=== PATIENT | female | born 1985 | race Caucasian/White ===

== ENCOUNTER 2018-05-24 12:48 | Emergency (ER) | payer MEDICAID, SELFPAY ==
[2018-05-24 12:51] VITALS: BP 147/75; PULSE 86; RESP 18; TEMP 36.8; O2SAT 99; BMI 28.8
--- NOTE | 2018-05-24 13:11 | RAD_ITS ---
STUDY: X-RAY CHEST REASON FOR EXAM: Female, 32 years old. CHEST PAIN, COUGH TECHNIQUE: Single AP portable view of the chest. COMPARISON: None. FINDINGS: The lungs are clear and expanded. There is no demonstrated pleural abnormality. Normal size heart. Normal mediastinum and wesley. Normal visualized pulmonary arteries. Normal visualized aortic arch and descending thoracic aorta. Normal visualized thoracic spine. Normal visualized ribs, clavicles, and shoulders. There is no demonstrated abnormality of the visualized soft tissue structures of the upper abdomen. RAD/Chest 1 View (Portable) IMPRESSION: Normal x-ray examination of the chest. Electronically Signed: Nely Lin MD at 13:38 EDT Tel , Service support ,
--- NOTE | 2018-05-24 13:12 | EKG12_ITS ---
Test Reason : REPEAT-CP Blood Pressure : / mmHG Vent. Rate : 077 BPM Atrial Rate : 077 BPM P-R Int : 134 ms QRS Dur : 086 ms QT Int : 392 ms P-R-T Axes : 028 -10 011 degrees QTc Int : 443 ms Normal sinus rhythm Inferior infarct , age undetermined Abnormal ECG Confirmed by KARMA BOOTHE, OTTONIEL ([id number]), magazine editor PETRA TOLBERT ([id number]) on 05/27/2018 2:46:01 PM Referred By: Gladys Quinn Confirmed By:OTTONIEL PARADA MD
[2018-05-24 13:23] LABS: Absolute Lymphocyte Count 3.07 X10^3/ul (0.83-4.51); Absolute Neutrophil Count 5.8 X10^3/uL (2.0-7.7); Basophil# 0.03 X10^3/uL; Basophil% 0.3 % (0-1); Eosinophil# 0.21 X10^3/uL; Eosinophils% 2.2 % (0-5); Hematocrit 43.7 % (37-47); Hemoglobin 14.8 g/dl (12.0-15.0); Lymphocyte # 3.07 X10^3/ul (4.0); Lymphocyte % 31.8 % (19-41); Mean Corp Hgb Conc 33.9 g/gl (32-36); Mean Corpuscular Hgb 29.4 pg (27.0-32.0); Mean Corpuscular Volume 86.7 fL (81-99); Mean Platelet Vol. 10.4 fl (6.2-12.0); Monocyte# 0.53 X10^3/uL; Monocyte% 5.5 % (0-10); Neutrophil # 5.81 X10^3/uL (2.7-7.7); Neutrophil % 60.1 % (47-70); Platelet Count 243 K/mm3 (150-450); RBC Distribution Width CV 12.8 % (11.6-14.6); RBC Distribution Width SD 40.5 fl (35.1-43.9); Red Blood Count 5.04 M/mm3 (4.2-5.4); White Blood Count 9.7 K/mm3 (4.4-11.0)
[2018-05-24 13:24] LABS: POSITIVE COUNT NO; POSITIVE DIFFERENTIAL NO; POSITIVE MORPHOLOGY NO
[2018-05-24] MEDS: 0.9% Normal Saline 1,000 ML 1000 ML IV (13:31)
[2018-05-24] MEDS: Aspirin 81 MG TAB.CHEW 324 MG PO (13:31)
[2018-05-24 13:34] LABS: Anion Gap 7 (5-15); BUN 17 mg/dL (7-18); BUN/Creat Ratio 19.7 RATIO (10-20); Calcium,Total 9.2 mg/dL (8.5-10.1); Chloride 100 mmol/L (98-107); Creatinine, Serum 0.86 mg/dL (0.55-1.02); EST Glomerular Filtration Rate 80 mL/min (>60); Est Glom Filt Rate - Afr Amer 97 mL/min (>60); Glucose 144 mg/dL (74-106); Potassium 3.5 mmol/L (3.5-5.1); Sodium Level 137 mmol/L (136-145)
[2018-05-24 13:56] LABS: D-Dimer Quantitative (DVT/PE) < 0.27 FEU/ug/m (0.27-0.49)
--- NOTE | 2018-05-24 14:03 | ED.VISSUMM ---
- ER Visit Summary Date of Service: 05/24/18 Chief Complaint: Chest pain History of Present Illness: The patient is a 32 F presents to the emergency department chest pain. Patient's been having symptoms for the past 2 days. States over the past 24 hours, has been constant. She describes it as a pressure and tightness in her chest. She states it does go to her left arm. She denies being shortness of breath. She denies any nausea or vomiting. It is not made worse with exertion. The patient does have a recent diagnosis of hypertension. She denies any history of coronary vascular disease. She denies any fevers or chills. She states she has never had symptoms like this before. The pain is not tearing. She has not had a cough. She has not had recent travel or history of pulmonary embolus. Physical Examination: Vital signs reviewed General: Well-nourished, well-developed Head: Normocephalic, atraumatic Eyes: Pupils equal and reactive, extraocular muscles intact Neck, supple, no lymphadenopathy Heart: Regular rate and rhythm Respiratory: No distress, clear bilaterally Abdomen: Soft, nontender, nondistended, no peritoneal signs Back: Nontender Extremities: Nontender, no edema, no cords Skin: Normal color no rash Neuro: Alert and oriented, no focal or lateralizing deficits Test Results: [] Emergency Department Course and Treatment: The patient presents with chest pain to her left arm. It is not exertional. She was given aspirin. She said no recurrence of pain. Her initial EKG showed some T wave flattening diffusely, but does not show acute ischemia. The patient has a heart score of 2. Her initial cardiac enzymes are normal. After discussion with the patient, we are going to do a repeat set of enzymes. My suspicion for cardiac cause is low given the patient's age and symptoms. Her d-dimer was negative. I did repeat her EKG and there is no progression. Her chest x-ray was also unremarkable. Patient will undergo repeat troponin testing. As long as this is normal, I do for the patient can safely be discharged. She is comfortable with this plan of care. Treatment Plan: [] Disposition: Discharge Impression: 1. Chest pain This note was generated with [employer] software. It may contain incorrect words, spelling, and punctuation that were not noted in review of the chart prior to signing ED Disposition - Plan for ED Patient: Chief Complaint: Chest Pain Instructions: ED Chest Pain Atypical Unkn Cause Referrals: Gladys Quinn NP-C [Primary Care Provider] -
--- NOTE | 2018-05-24 14:16 | EKG12_ITS ---
Test Reason : CP Blood Pressure : / mmHG Vent. Rate : 091 BPM Atrial Rate : 091 BPM P-R Int : 126 ms QRS Dur : 084 ms QT Int : 368 ms P-R-T Axes : 035 -01 039 degrees QTc Int : 452 ms Normal sinus rhythm Nonspecific T wave abnormality Abnormal ECG Confirmed by KARMA BOOTHE, OTTONIEL ([id number]), pictures editor PETRA TOLBERT ([id number]) on 05/27/2018 2:45:37 PM Referred By: Gladys Quinn Confirmed By:OTTONIEL PARADA MD
[2018-05-24 15:12] VITALS: BP 118/83; PULSE 85; RESP 14; O2SAT 98
[2018-05-24 15:50] VITALS: BP 125/78; PULSE 80; RESP 14; O2SAT 98
== END 2018-05-24 15:51 | disposition home or self-care (01) ==
PROVIDERS: Emergency Provider Emergency Medicine; PCP Nurse Practitioner Family; Referring Provider Nurse Practitioner Family
DX: R07.9 Chest pain, unspecified (principal); I10 Essential (primary) hypertension; Z79.899 Other long term (current) drug therapy; Z87.891 Personal history of nicotine dependence
CPT/HCPCS: 71045; 80048; 84484; 85025; 85379; 93005; 99285; J7030

== ENCOUNTER 2018-08-24 09:56 | Emergency (ER) | payer MEDICAID, SELFPAY ==
[2018-08-24 09:57] VITALS: BP 141/88; PULSE 100; RESP 18; TEMP 36.6; O2SAT 99; BMI 33.5
[2018-08-24 10:09] VITALS: TEMP 36.7
--- NOTE | 2018-08-24 10:15 | RAD_ITS ---
STUDY: X-RAY CHEST REASON FOR EXAM: Female, 32 years old. Cough. TECHNIQUE: PA and lateral views of the chest. COMPARISON: 24 May 2018. FINDINGS: Mild airspace disease overlies the left upper lobe posterior basilar segment. There is no demonstrated pleural abnormality. Normal size heart. Normal mediastinum and wesley. Normal visualized pulmonary arteries. Normal visualized aortic arch and descending thoracic aorta. Normal visualized thoracic spine. Normal visualized ribs, clavicles, and shoulders. There is no demonstrated abnormality of the visualized soft tissue structures of the upper abdomen. RAD/Chest PA and Lateral IMPRESSION: Early airspace disease overlies the left upper lobe posterior basilar segment concerning for early infiltrate in the appropriate clinical setting. Electronically Signed: Ulices Trujillo DO at 10:35 EST , Service support ,
--- NOTE | 2018-08-24 11:11 | ED.VISSUMM ---
- ER Visit Summary Date of Service: 08/24/18 Chief Complaint: [Cough ] History of Present Illness: The patient is a 32 F [presents to the emergency department with a cough times 2 days. Patient states initially she had some thick yellow sputum however now her cough is mostly dry. Patient's had fever up to 101 at home. She denies any sick contacts. Patient states that she recently got back from a [place] cruise over the holidays. She denies any chest pain other than with cough. She denies any hemoptysis. She denies any leg swelling. She states she woke up today and had bilateral ear pain and a slight sore throat. Patient complains of body aches.] Physical Examination: [HEENT-PERRLA, EOMI. Cranial nerves II through XII grossly intact. TMs clear. Mucous membranes moist. No adenopathy. Cardiovascular-regular rate and rhythm without murmur or ectopy Lungs-clear to auscultation, chest wall stable without crepitus or subcu emphysema Abdomen-normoactive bowel sounds, soft, nontender, no rebound or rigidity, no peritoneal signs. Extremities-intact ?4, normal range of motion, normal pulses, atraumatic] Test Results: [RSV screen was negative, influenza screen negative, chest x-ray was read by radiology as increased markings in the left upper lobe consistent with possibly early infiltrate.] Emergency Department Course and Treatment: [Patient was started on Zithromax] Treatment Plan: [Patient will be treated with Zithromax and Tessalon Perles] Disposition: [Discharged home in stable condition] Impression: [Pneumonia left upper lobe] This note was generated with [employer] dictation software. It may contain incorrect words, spelling, and punctuation that were not noted in review of the chart prior to signing ED Disposition - Plan for ED Patient: Chief Complaint: Cough Referrals: Gladys Quinn NP-C [Primary Care Provider] -
--- NOTE | 2018-08-24 11:14 | DCINST.ED_ITS ---
ED Disposition - Plan for ED Patient: Chief Complaint: Cough Instructions: ED Pneumonia Adult Prescriptions: Azithromycin [Zithromax] 250 mg PO DAILY #4 tab Benzonatate [Tessalon Perle] 200 mg PO TID PRN PRN #20 cap PRN Reason: Cough Referrals: Gladys Quinn, PRESCHOOL PROGRAM DIRECTOR-C [Primary Care Provider] - 5-7 Days
[2018-08-24] MEDS: Azithromycin 250 MG Tablet 500 MG PO (11:36)
[2018-08-24 11:41] VITALS: BP 117/79; PULSE 105; RESP 16; O2SAT 93
== END 2018-08-24 11:42 | disposition home or self-care (01) ==
LOC: ED 10:33
PROVIDERS: Emergency Provider Emergency Medicine; Family Provider Nurse Practitioner Family; PCP Nurse Practitioner Family
DX: J18.9 Pneumonia, unspecified organism (principal)
CPT/HCPCS: 71046; 87804; 87807; 99283

== ENCOUNTER → 2019-03-28 13:58 | Outpatient (CLI) | payer MEDICAID, SELFPAY ==
[2019-04-01 15:47] LABS: HPV Reflexed? NOT INDICATED
== END ==
PROVIDERS: Family Provider Nurse Practitioner Family; PCP Nurse Practitioner Family; Referring Provider Obstetrics & Gynecology; Visit Provider Obstetrics & Gynecology
DX: Z12.4 Encounter for screening for malignant neoplasm of cervix (principal)
CPT/HCPCS: 88175; G0145

== ENCOUNTER → 2019-05-01 12:37 | Outpatient (CLI) | payer MEDICAID, SELFPAY ==
[2019-05-01 14:10] LABS: Progesterone Level 0.26 ng/mL (See Comment)
== END ==
PROVIDERS: Family Provider Nurse Practitioner Family; PCP Nurse Practitioner Family; Referring Provider Obstetrics & Gynecology; Visit Provider Obstetrics & Gynecology
DX: N97.0 Female infertility associated with anovulation (principal)
CPT/HCPCS: 36415; 84144

== ENCOUNTER → 2019-05-29 11:47 | Outpatient (CLI) | payer MEDICAID, SELFPAY ==
[2019-05-29 12:54] LABS: Progesterone Level 6.05 ng/mL (See Comment)
== END ==
PROVIDERS: Family Provider Nurse Practitioner Family; PCP Nurse Practitioner Family; Visit Provider Obstetrics & Gynecology
DX: N97.0 Female infertility associated with anovulation (principal)
CPT/HCPCS: 36415; 84144

== ENCOUNTER → 2019-06-25 12:08 | Outpatient (CLI) | payer MEDICAID, SELFPAY | PROVIDERS: Family Provider Nurse Practitioner Family; PCP Nurse Practitioner Family; Referring Provider Obstetrics & Gynecology; Visit Provider Obstetrics & Gynecology | DX: N97.0 Female infertility associated with anovulation (principal) | CPT/HCPCS: 36415; 84144 ==

== ENCOUNTER → 2019-07-24 11:08 | Outpatient (CLI) | payer MEDICAID, SELFPAY ==
[2019-07-24 14:14] LABS: Progesterone Level 8.16 ng/mL (See Comment)
== END ==
PROVIDERS: Family Provider Nurse Practitioner Family; PCP Nurse Practitioner Family; Visit Provider Obstetrics & Gynecology
DX: N97.0 Female infertility associated with anovulation (principal)
CPT/HCPCS: 36415; 84144

== ENCOUNTER → 2019-08-04 12:48 | Outpatient (CLI) | payer MEDICAID, SELFPAY ==
--- NOTE | 2019-08-04 12:52 | RAD_ITS ---
STUDY: X-RAY - RIGHT FEMUR REASON FOR STUDY: Female, 33 years old. Right hip area pain. TECHNIQUE: 2 view(s) of the femur. COMPARISON: None. FINDINGS: There is a subtle intramedullary and slightly eccentric sclerotic lesion measuring approximately 1.1 x 1.2 cm located within the proximal femoral diaphysis incompletely characterized by current study. Otherwise normal visualized femur. Normal visualized soft tissue structure. RAD/Femur Min 2 Views IMPRESSION: Sclerotic lesion within the proximal femoral diaphysis with no cortical breakthrough and incompletely characterized by current exam. If indicated, follow-up with CT of the proximal femur or MRI in nonacute setting recommended. Electronically Signed: Evi Shook MD at 0:28 EST , Service support ,
== END ==
PROVIDERS: Family Provider Nurse Practitioner Family; PCP Nurse Practitioner Family
DX: M25.551 Pain in right hip (principal)
CPT/HCPCS: 73552

== ENCOUNTER → 2019-08-09 07:09 | Outpatient (CLI) | payer MEDICAID, SELFPAY ==
--- NOTE | 2019-08-09 07:45 | MRI_ITS ---
STUDY: MRI LOWER EXTREMITY RIGHT THIGH WITHOUT CONTRAST REASON FOR EXAM: Female, 33 years old. RIGHT femur abnormality, RIGHT hip pain, NKI. Abnormal x-ray. TECHNIQUE: Standardized fat and water weighted pulse sequences were obtained in all 3 orthogonal planes. COMPARISON: X-ray August 04, 2019. FINDINGS: Normal subcutis adipose space. Normal quadriceps, adductor and hamstring muscles. Normal quadriceps extensor mechanism with a normal rectus femoris, vastus medialis, intermedius and lateralis muscles. There is a 1.2 x 1.0 cm diminished signal region consistent with sclerosis of the marrow of the proximal shaft of the femur, corresponding to the x-ray abnormality, series 3 and 4 image . There is no acute fracture. There is no marrow edema or periosteal reaction. Normal uterus. There are adnexal follicles . MRI/Lower Ext/No Jt/w/o IMPRESSION: Benign appearing diminished signal lesion of the proximal shaft of the femur with possible bone island. More aggressive-appearing lesions would be unlikely with this appearance. No fracture or periosteal reaction. Electronically Signed: Oscar Wilson MD at 9:28 EST , Service support ,
== END ==
DX: D49.2 Neoplasm of unspecified behavior of bone, soft tissue, and skin (principal); M25.551 Pain in right hip
CPT/HCPCS: 73718

== ENCOUNTER → 2019-08-19 10:38 | Outpatient (CLI) | payer MEDICAID, SELFPAY ==
[2019-08-19 12:43] LABS: Progesterone Level 12.23 ng/mL (See Comment)
== END ==
PROVIDERS: Visit Provider Obstetrics & Gynecology
DX: N97.0 Female infertility associated with anovulation (principal)
CPT/HCPCS: 36415; 84144

== ENCOUNTER → 2019-09-17 11:25 | Outpatient (CLI) | payer MEDICAID, SELFPAY ==
[2019-09-17 12:44] LABS: Progesterone Level 8.07 ng/mL (See Comment)
== END ==
PROVIDERS: Visit Provider Obstetrics & Gynecology
DX: N97.0 Female infertility associated with anovulation (principal)
CPT/HCPCS: 36415; 84144

== ENCOUNTER → 2019-11-28 10:10 | Outpatient (CLI) | payer MEDICAID, SELFPAY ==
[2019-09-19 08:48] VITALS: BMI 33.5
--- NOTE | 2019-11-28 10:11 | RAD_ITS ---
STUDY: X-RAY - RIGHT KNEE REASON FOR EXAM: Female, 34 years old. PAIN TECHNIQUE: 4 view(s) of the knee. COMPARISON: None. FINDINGS: Normal visualized distal femur. Normal visualized proximal tibia and fibula. Normal proximal tibiofibular articulation. Normal medial femorotibial compartment. Normal lateral femorotibial compartment. Normal patellofemoral articulation. The soft tissue structures are unremarkable. RAD/Knee 4 or More Views IMPRESSION: Normal x-ray examination of the knee. Electronically Signed: Randy Mckinney, at 8:42 EDT , Service support ,
--- NOTE | 2019-11-28 10:11 | RAD_ITS ---
STUDY: X-RAY - RIGHT FEMUR REASON FOR STUDY: Female, 34 years old. PAIN TECHNIQUE: 4 view(s) of the femur. COMPARISON: Comparison is made with prior study dated August 04, 2019. FINDINGS: There is a 1 cm x 1.2 cm sclerotic nodule in the proximal diaphysis of the right femur. This may represent a bone island. This is unchanged as compared to prior study dated August 04, 2019. Normal visualized soft tissue structure. RAD/Femur Min 2 Views IMPRESSION: 1 cm x 1.2 cm sclerotic nodule in the proximal diaphysis of the right femur as described. This is unchanged. Prior MRI examination of the femur dated August 09, 2019 was unremarkable. Electronically Signed: Randy Mckinney, at 8:42 EDT , Service support ,
== END ==
PROVIDERS: Referring Provider Orthopaedic Surgery; Visit Provider Orthopaedic Surgery
DX: M79.651 Pain in right thigh (principal)
CPT/HCPCS: 73552; 73564

== ENCOUNTER → 2020-05-27 09:53 | Outpatient (CLI) | payer MEDICAID, SELFPAY ==
[2019-11-28 10:30] VITALS: BMI 33.5
[2020-05-27 11:22] LABS: Absolute Lymphocyte Count 2.76 X10^3/uL (0.83-4.51); Absolute Neutrophil Count 4.2 X10^3/uL (2.0-7.7); Basophil# 0.03 X10^3/uL; Basophil% 0.4 % (0-1); Eosinophil# 0.21 X10^3/uL; Eosinophils% 2.7 % (0-5); Hematocrit 46.3 % (37-47); Hemoglobin 15.1 g/dL (12.0-15.0); Lymphocyte # 2.76 X10^3/ul (4.0); Lymphocyte % 35.9 % (19-41); Mean Corp Hgb Conc 32.6 g/dL (32-36); Mean Corpuscular Hgb 28.7 pg (27.0-32.0); Mean Platelet Vol. 10.3 fl (6.2-12.0); Monocyte# 0.41 X10^3/uL; Monocyte% 5.3 % (0-10); NRBC Flagged by Analyzer 0 % (0-5); Neutrophil # 4.24 X10^3/uL (2.7-7.7); Neutrophil % 55.3 % (47-70); Platelet Count 307 K/mm3 (150-450); RBC Distribution Width CV 12.1 % (11.6-14.6); RBC Distribution Width SD 39.3 fl (35.1-43.9); Red Blood Count 5.26 M/mm3 (4.2-5.4); White Blood Count 7.7 K/mm3 (4.4-11.0)
[2020-05-27 12:06] LABS: Vitamin D,25 Hydroxy 59.3 ng/mL
[2020-05-27 12:10] LABS: AST(SGOT) 18 U/L (15-37); Alanine Aminotransfer ALT/SGPT 44 U/L (13-56); Albumin, Serum 4.5 g/dL (3.2-5.0); Alkaline Phosphatase 49 U/L (45-117); Anion Gap 6 (5-15); BUN 13 mg/dL (7-18); BUN/Creat Ratio 16.1 RATIO (10-20); Calcium,Total 9.2 mg/dL (8.5-10.1); Chloride 104 mmol/L (98-107); Cholesterol 154 mg/dL (200); EST Glomerular Filtration Rate 86 mL/min (>60); Est Glom Filt Rate - Afr Amer 104 mL/min (>60); Follicle Stimulating Hormone 4.7 mIU/mL; Globulin 4.4 g/dL (2.2-4.2); Glucose 91 mg/dL (74-106); High Density Lipoprotein 40 mg/dL; Luteinizing Hormone 8.8 mIU/mL; Potassium 4.1 mmol/L (3.5-5.1); Prolactin 6.4 ng/mL; Protein, Total 8.9 g/dL (6.4-8.2); Sodium Level 138 mmol/L (136-145); Thyroid Stim Hormone (TSH) 1.07 uIU/mL (0.358-3.74); Triglycerides 245 mg/dL; Very Low Density Lipoprotein 49 mg/dL (5-40)
[2020-05-27 12:11] LABS: Hemoglobin A1c 5.4 % (3.8-5.6)
== END ==
PROVIDERS: Nurse Practitioner Family
DX: I10 Essential (primary) hypertension (principal); E78.2 Mixed hyperlipidemia; E28.2 Polycystic ovarian syndrome; E55.9 Vitamin D deficiency, unspecified; R68.82 Decreased libido
CPT/HCPCS: 36415; 80053; 80061; 82306; 83001; 83002; 83036; 84146; 84403; 84443; 84481; 85025

== ENCOUNTER → 2020-08-24 09:33 | Outpatient (CLI) | payer MEDICAID, SELFPAY ==
[2019-11-28 10:30] VITALS: BMI 33.5
[2020-08-26 14:57] LABS: HPV Reflexed? NOT INDICATED
== END ==
PROVIDERS: Visit Provider Student in an Organized Health Care Education/Training Program
DX: Z12.4 Encounter for screening for malignant neoplasm of cervix (principal)
CPT/HCPCS: 88175; G0145

== ENCOUNTER → 2020-12-06 09:16 | Outpatient (CLI) | payer OTHER, MEDICAID, SELFPAY ==
[2019-11-28 10:30] VITALS: BMI 33.5
[2020-12-06 10:21] LABS: Vitamin D,25 Hydroxy 36.4 ng/mL
[2020-12-06 10:24] LABS: Hemoglobin A1c 5.2 % (3.8-5.6)
[2020-12-06 10:28] LABS: ALB/GLOB Ratio 1.2 RATIO (0.9-2.4); AST(SGOT) 12 U/L (15-37); Alanine Aminotransfer ALT/SGPT 30 U/L (13-56); Albumin, Serum 4.2 g/dL (3.2-5.0); Alkaline Phosphatase 46 U/L (45-117); Anion Gap 4 (5-15); BUN 13 mg/dL (7-18); BUN/Creat Ratio 17.4 RATIO (10-20); Chloride 103 mmol/L (98-107); Cholesterol 121 mg/dL (200); Creatinine, Serum 0.74 mg/dL (0.55-1.02); EST Glomerular Filtration Rate 94 mL/min (>60); Est Glom Filt Rate - Afr Amer 113 mL/min (>60); Globulin 3.4 g/dL (2.2-4.2); Glucose 102 mg/dL (74-106); High Density Lipoprotein 36 mg/dL; Potassium 3.9 mmol/L (3.5-5.1); Protein, Total 7.6 g/dL (6.4-8.2); Sodium Level 136 mmol/L (136-145); Triglycerides 203 mg/dL; Very Low Density Lipoprotein 41 mg/dL (5-40)
== END ==
DX: I10 Essential (primary) hypertension (principal); E78.2 Mixed hyperlipidemia; E55.9 Vitamin D deficiency, unspecified; E28.2 Polycystic ovarian syndrome
CPT/HCPCS: 36415; 80053; 80061; 82306; 83036

== ENCOUNTER → 2021-02-16 10:16 | Outpatient (CLI) | payer OTHER, MEDICAID, SELFPAY ==
[2019-11-28 10:30] VITALS: BMI 33.5
--- NOTE | 2021-02-16 10:30 | RAD_ITS ---
STUDY: X-RAY - LEFT FOOT CLINICAL: Female, 35 years old. Pain TECHNIQUE: 2 view(s) of the foot. COMPARISON: None. FINDINGS: There is no evidence of fracture or dislocation. There are no significant degenerative changes. There are no radiodense foreign bodies. RAD/Foot 2 Views IMPRESSION: No fracture or dislocation. Electronically Signed: Tre Harmon MD at 8:53 EDT Tel , Service support ,
== END ==
PROVIDERS: PCP Nurse Practitioner Adult Health; Referring Provider Nurse Practitioner Adult Health; Visit Provider Nurse Practitioner Adult Health
DX: M79.672 Pain in left foot (principal)
CPT/HCPCS: 73620

== ENCOUNTER → 2021-07-08 15:03 | Outpatient (CLI) | payer OTHER, MEDICAID, SELFPAY ==
[2021-07-08 16:37] LABS: Vitamin D,25 Hydroxy 25.1 ng/mL
[2021-07-08 16:44] LABS: ALB/GLOB Ratio 1.2 RATIO (0.9-2.4); AST(SGOT) 13 U/L (15-37); Alanine Aminotransfer ALT/SGPT 25 U/L (13-56); Albumin, Serum 4.1 g/dL (3.2-5.0); Alkaline Phosphatase 38 U/L (45-117); Anion Gap 6 (5-15); BUN 18 mg/dL (7-18); BUN/Creat Ratio 19.8 RATIO (10-20); Calcium,Total 8.8 mg/dL (8.5-10.1); Chloride 106 mmol/L (98-107); Creatinine, Serum 0.91 mg/dL (0.55-1.02); EST Glomerular Filtration Rate 74 mL/min (>60); Est Glom Filt Rate - Afr Amer 90 mL/min (>60); Globulin 3.4 g/dL (2.2-4.2); Glucose 83 mg/dL (74-106); Potassium 3.5 mmol/L (3.5-5.1); Protein, Total 7.5 g/dL (6.4-8.2); Sodium Level 139 mmol/L (136-145); Thyroid Stim Hormone (TSH) 0.86 uIU/mL (0.358-3.74)
== END ==
PROVIDERS: PCP Nurse Practitioner Adult Health; Visit Provider Nurse Practitioner Adult Health
DX: I10 Essential (primary) hypertension (principal); E78.2 Mixed hyperlipidemia; E55.9 Vitamin D deficiency, unspecified
CPT/HCPCS: 36415; 80053; 82306; 84443

== ENCOUNTER 2021-11-10 14:59 | Outpatient (CLI) | payer OTHER, MEDICAID, SELFPAY ==
--- NOTE | 2021-11-10 15:10 | RAD_ITS ---
STUDY: CHEST SERIES--PA AND LATERAL VIEWS OF 1512 HOURS ON 11/10/2021 REASON FOR EXAM: 36-year-old female with a cough. TECHNIQUE: A 2 view standard chest x-rays series was performed per protocol. COMPARISON: 08/24/2018. FINDINGS: Mild demineralization. No cardiomegaly. No pulmonary infiltrates, atelectasis, effusion, or pulmonary mass. No pneumonia, pneumonitis or bronchitis. No bronchial wall thickening. No evidence of an infiltrate that was suspected in the previous study of 08/24/2018.. RAD/Chest PA and Lateral IMPRESSION: No active cardiopulmonary disease. Electronically Signed: Raúl Howard MD at 23:58 EDT ,
== END 2021-11-10 23:59 | disposition home or self-care (01) ==
LOC: RAD 15:01
PROVIDERS: PCP Nurse Practitioner Adult Health; Referring Provider Nurse Practitioner Adult Health; Visit Provider Nurse Practitioner Adult Health
DX: R05.9 Cough, unspecified (principal)
CPT/HCPCS: 71046

== ENCOUNTER 2021-11-22 12:53 | Outpatient (CLI) | payer OTHER, MEDICAID, SELFPAY ==
--- NOTE | 2021-11-23 09:59 | PFT ---
INTRODUCTION: The patient is a 36-year-old female that presents for pulmonary function studies secondary to a diagnosis of cough. Respiratory therapy reported good patient effort. Bronchodilators were used during testing. INTERPRETATION: Forced expiration spirometry demonstrates no evidence of a large airways obstructive ventilatory defect. There was no significant response to aerosolized bronchodilators. Spirograms are of good quality and plateau normally. The respiratory flow volume loop is normal. Body plethysmography was performed and reveals lung volumes to be within normal limits. Diffusing capacity by single breath CO is likewise within normal limits. IMPRESSION: Grossly normal pulmonary function studies.
== END 2021-11-22 23:59 | disposition home or self-care (01) ==
LOC: PSN 12:53
PROVIDERS: PCP Nurse Practitioner Adult Health; Referring Provider Nurse Practitioner Adult Health; Visit Provider Nurse Practitioner Adult Health
DX: R05.9 Cough, unspecified (principal)
CPT/HCPCS: 94060; 94726; 94729

== ENCOUNTER → 2022-04-21 | Outpatient (CLI) | payer OTHER, MEDICAID, SELFPAY ==
[2022-04-21 12:13] LABS: T4 Free Direct 1.02 ng/dL (0.76-1.46); Thyroid Stim Hormone (TSH) 1.05 uIU/mL (0.358-3.74)
== END | disposition home or self-care (01) ==
LOC: WOBLAB 10:39
PROVIDERS: PCP Nurse Practitioner Adult Health; Visit Provider Student in an Organized Health Care Education/Training Program
DX: N93.9 Abnormal uterine and vaginal bleeding, unspecified (principal)
CPT/HCPCS: 36415; 84439; 84443

== ENCOUNTER → 2022-07-21 | Outpatient (CLI) | payer OTHER, MEDICAID, SELFPAY ==
[2022-07-21 11:48] LABS: Hemoglobin A1c 5.5 % (3.8-5.6)
[2022-07-21 12:04] LABS: ALB/GLOB Ratio 1.2 RATIO (0.9-2.4); AST(SGOT) 11 U/L (15-37); Alanine Aminotransfer ALT/SGPT 26 U/L (13-56); Albumin, Serum 4.2 g/dL (3.2-5.0); Alkaline Phosphatase 41 U/L (45-117); Anion Gap 5 (5-15); BUN 11 mg/dL (7-18); BUN/Creat Ratio 14.5 RATIO (10-20); Chloride 107 mmol/L (98-107); Cholesterol 171 mg/dL (200); Creatinine, Serum 0.76 mg/dL (0.55-1.02); EST Glomerular Filtration Rate 91 mL/min (>60); Est Glom Filt Rate - Afr Amer 110 mL/min (>60); Globulin 3.4 g/dL (2.2-4.2); Glucose 102 mg/dL (74-106); High Density Lipoprotein 51 mg/dL; Potassium 3.4 mmol/L (3.5-5.1); Protein, Total 7.6 g/dL (6.4-8.2); Sodium Level 139 mmol/L (136-145); Triglycerides 163 mg/dL; Very Low Density Lipoprotein 33 mg/dL (5-40)
== END | disposition home or self-care (01) ==
LOC: LAB 11:02
DX: E11.9 Type 2 diabetes mellitus without complications (principal); I10 Essential (primary) hypertension; E78.2 Mixed hyperlipidemia
CPT/HCPCS: 36415; 80053; 80061; 83036

== ENCOUNTER → 2023-05-05 | Outpatient (CLI) | payer SELFPAY ==
[2023-05-05 10:35] LABS: Absolute Neutrophil Count 5.8 X10^3/uL (2.0-7.7); Basophil# 0.04 X10^3/uL; Basophil% 0.5 % (0-1); Eosinophil# 0.15 X10^3/uL; Eosinophils% 1.8 % (0-5); Hematocrit 44.3 % (37-47); Hemoglobin 14.4 g/dL (12.0-15.0); Lymphocyte % 21.7 % (19-41); Mean Corp Hgb Conc 32.5 g/dL (32-36); Mean Corpuscular Hgb 27.8 pg (27.0-32.0); Mean Corpuscular Volume 85.5 fL (81-99); Mean Platelet Vol. 9.6 fl (6.2-12.0); Monocyte# 0.45 X10^3/uL; Monocyte% 5.4 % (0-10); NRBC Flagged by Analyzer 0 % (0-5); Neutrophil # 5.82 X10^3/uL (2.7-7.7); Neutrophil % 70.4 % (47-70); Platelet Count 304 K/mm3 (150-450); RBC Distribution Width CV 12.2 % (11.6-14.6); RBC Distribution Width SD 37.9 fl (35.1-43.9); Red Blood Count 5.18 M/mm3 (4.2-5.4); White Blood Count 8.3 K/mm3 (4.4-11.0)
[2023-05-05 10:52] LABS: ALB/GLOB Ratio 1.2 RATIO (0.9-2.4); AST(SGOT) 13 U/L (15-37); Alanine Aminotransfer ALT/SGPT 30 U/L (13-56); Alkaline Phosphatase 55 U/L (45-117); Anion Gap 2 (5-15); BUN 9 mg/dL (7-18); BUN/Creat Ratio 11.4 RATIO (10-20); Calcium,Total 8.8 mg/dL (8.5-10.1); Chloride 105 mmol/L (98-107); Cholesterol 130 mg/dL (200); Creatinine, Serum 0.79 mg/dL (0.55-1.02); EST Glomerular Filtration Rate 86 mL/min (>60); Est Glom Filt Rate - Afr Amer 104 mL/min (>60); Globulin 3.4 g/dL (2.2-4.2); Glucose 107 mg/dL (74-106); High Density Lipoprotein 41 mg/dL; Potassium 3.7 mmol/L (3.5-5.1); Protein, Total 7.4 g/dL (6.4-8.2); Sodium Level 138 mmol/L (136-145); Triglycerides 167 mg/dL; Very Low Density Lipoprotein 33 mg/dL (5-40)
[2023-05-05 10:59] LABS: Microalbumin,Random Urine 54.5 mg/L (NO RANGE EST.); Microalbumin:Creatinine Ratio 26.3 mg/g CRE (<30 mg/g CRE)
[2023-05-07 08:25] LABS: Vitamin D,25 Hydroxy 74.8 ng/mL
== END | disposition home or self-care (01) ==
PROVIDERS: PCP Internal Medicine; Referring Provider Internal Medicine; Visit Provider Internal Medicine
DX: E11.9 Type 2 diabetes mellitus without complications (principal); E55.9 Vitamin D deficiency, unspecified
CPT/HCPCS: 36415; 80053; 80061; 82043; 82306; 82570; 85025

== ENCOUNTER → 2023-10-12 | Outpatient (CLI) | payer OTHER, SELFPAY ==
[2023-10-17 16:10] LABS: HPV APTIMA, High Risk Negative (Negative)
== END | disposition home or self-care (01) ==
PROVIDERS: PCP Internal Medicine; Visit Provider Advanced Practice Midwife
DX: Z12.4 Encounter for screening for malignant neoplasm of cervix (principal)
CPT/HCPCS: 87624; 88175; G0145

== ENCOUNTER 2023-11-19 06:49 | Emergency (ER) | payer OTHER, SELFPAY ==
[2023-11-19] VITALS (9 sets, daily range): BP systolic 135–154; BP diastolic 91–108; PULSE 85–90; RESP 16–18; TEMP 36.1–36.6; O2SAT 95–99; BMI 27.2
--- NOTE | 2023-11-19 07:08 | EDS_ITS ---
HPI History of Present Illness Chief Complaint: Headache Informant: patient Narrative Narrative: Patient presents secondary to headache and sinus congestion. She reports having intermittent headaches over the past couple weeks, but states it returned over the weekend. Pain is not focal. She does have congestion with mucus when she blows her nose. She does report mild cough. This morning she had some vomiting and diarrhea as well. She thinks she may have had fever intermittently, but is unsure. She did not take anything for pain prior to coming to the emergency room this morning. [facility] Medical History (Updated 11/19/23 @ 08:[address] Ashleigh Rodriguez MD) Arthritis Depression Diabetes mellitus High cholesterol Hormone deficiency Hypertension Seasonal allergies Vitamin deficiency Home Medications ibuprofen 800 mg tablet 800 mg PO TID PRN pain #60 tabs 03/17/22 [Rx Last Taken Unknown] cetirizine 10 mg tablet 10 mg PO DAILY #90 tabs 08/29/23 [Rx Last Taken Unknown] rosuvastatin 5 mg tablet 5 mg PO QHS #90 tabs 08/29/23 [Rx Last Taken Unknown] desvenlafaxine succinate 25 mg tablet,extended release 24 hr See Rx Instructions .Route .COMPLEX #30 tabs 10/23/23 [Rx Last Taken Unknown] benzonatate 200 mg capsule 200 mg PO TID PRN cough #14 caps 11/19/23 [Rx Last Taken Unknown] doxycycline monohydrate 100 mg capsule 100 mg PO BID #20 CAPSULES 11/19/23 [Rx Last Taken Unknown] Allergy/AdvReac Type Severity Reaction Status Date / Time LISINOPRIL AdvReac Intermediate COUGH Uncoded 10/12/23 16:00 Family History Mother Breast cancer 50s Arthritis Paranoid schizophrenia Grandfather Myocardial infarction Hypertension Heart disease Arthritis Grandmother Hypertension Osteopenia Arthritis Father Hypertension DVT (deep venous thrombosis) Arthritis Surgical History History of removal of ovarian cyst Social History household members: spouse current occupational status: employed current occupation: works in [employer] Smoking Status: Never smoker Electronic Cigarette Use: not used alcohol intake: current alcohol intake frequency: holidays/special occasions only substance use type: does not use seatbelt use: always do you feel safe at home: Yes ROS ROS ED Constitutional Constitutional ED: Reports fever(s) and subjective; Denies chills Eyes Eyes: Denies change in vision or discharge from eye(s) ENT ENT ED: Reports ear pain bilateral and other Details: Sinus congestion ; Denies discharge from eye(s), rhinorrhea or sore throat Cardiovascular Cardiovascular: Denies chest pain or palpitations Respiratory/Chest Respiratory/Chest: Reports cough; Denies dyspnea Gastrointestinal Gastrointestinal: Reports diarrhea, nausea and vomiting; Denies abdominal pain Genitourinary Genitourinary ED: Denies dysuria Musculoskeletal Musculoskeletal: Denies back pain or extremity pain Integumentary Denies Abrasions or rash Neurologic Neurologic: Reports headache(s); Denies weakness Psychiatric Psychiatric: Denies anxiety or depression Allergic/Immunologic Allergic/Immunologic ED: Denies lip swelling or urticaria EXAM Physical Exam Const Vital Signs: 11/19/23 06:51 Temperature 97 F L Temperature Source Oral Pulse Rate 85 Respiratory Rate 16 Blood Pressure 151/103 H Blood Pressure Mean 119 Pulse Ox 95 Oxygen Delivery Method Room Air Positive well nourished and well developed General Appearance ED: well developed HEENT Reports TM's clear and moist mucous membranes HEENT Narrative: Mild tenderness over both the frontal and maxillary sinuses. Tympanic Membrane ED: Yes TM's clear Eyes EOMs intact bilaterally Neck no lymphadenopathy Chest Wall inspection of chest normal and palpation of chest normal Resp normal respiratory effort and clear to auscultation bilaterally Cardio regular rate and regular rhythm GI non-tender Palpation: soft Extremity normal to inspection Neuro oriented x3 and no sensory deficits noted Motor Exam: strength 5/5 throughout Psych mental status grossly normal Skin no rashes or lesions noted MDM MDM MDM Narrative Medical decision making narrative: Patient be given Naprosyn along with doxycycline to treat sinusitis. Swab for COVID, influenza, and RSV will be obtained. Treatment and Re-Evaluation :: Swab for COVID, influenza, and RSV is negative. Patient will be given a prescription for doxycycline along with Tessalon Perles to help control cough. Return instructions provided. Discharge Plan Triage Chief Complaint: Headache ED Provider: Ashleigh Rodriguez Dx/Rx/DC Orders Clinical Impression: URI (upper respiratory infection), Sinusitis Instructions: ED Sinusitis (Antibiotic Treatment) Prescriptions: New benzonatate 200 mg capsule 200 mg PO TID PRN (Reason: cough) Qty: 14 0RF doxycycline monohydrate 100 mg capsule 100 mg PO BID Qty: 20 0RF No Action ibuprofen 800 mg tablet 800 mg PO TID PRN (Reason: pain) Qty: 60 0RF Rx Instructions: Do not take in conjunction with other NSAIDs. Tylenol is okay. cetirizine 10 mg tablet 10 mg PO DAILY Qty: 90 1RF rosuvastatin 5 mg tablet 5 mg PO QHS Qty: 90 1RF desvenlafaxine succinate 25 mg tablet extended release 24 hr See Rx Instructions .ROUTE .COMPLEX Qty: 30 0RF Dose Instruction: Take 1 tablet by mouth once daily Rx Instructions: Take 1 tablet by mouth once daily Primary Care Provider: Christine Christopher Referrals: Christine Christopher MD [Primary Care Provider] - 1-2 Weeks Disposition Disposition: Home, Self Care
[2023-11-19] MEDS: Naproxen 500 MG Tablet PO (07:14)
[2023-11-19] MEDS: Doxycycline 100 MG CAPSULE PO (07:15)
== END 2023-11-19 09:05 | disposition home or self-care (01) ==
PROVIDERS: Emergency Provider Emergency Medicine; PCP Internal Medicine; Visit Provider Emergency Medicine
DX: J06.9 Acute upper respiratory infection, unspecified (principal); E11.9 Type 2 diabetes mellitus without complications; J32.9 Chronic sinusitis, unspecified
CPT/HCPCS: 87631; 99283

== ENCOUNTER → 2023-12-20 | Outpatient (CLI) | payer OTHER, SELFPAY ==
[2023-12-20 17:03] LABS: BNP,B-Type NATRIURETIC PEPTIDE 19.2 pg/mL (0-100); Protein, Urine (Random) 9.9 mg/dL (<11.9); Protein:Creat Ratio 89 mg/g CRE (0-200)
[2023-12-20 17:07] LABS: ALB/GLOB Ratio 1.2 RATIO (0.9-2.4); AST(SGOT) 22 U/L (15-37); Alanine Aminotransfer ALT/SGPT 38 U/L (13-56); Alkaline Phosphatase 50 U/L (45-117); Anion Gap 5 (5-15); BUN 9 mg/dL (7-18); BUN/Creat Ratio 12.6 RATIO (10-20); Calcium,Total 8.9 mg/dL (8.5-10.1); Chloride 104 mmol/L (98-107); Creatinine, Serum 0.72 mg/dL (0.55-1.02); EST Glomerular Filtration Rate 96 mL/min (>60); Est Glom Filt Rate - Afr Amer 117 mL/min (>60); Globulin 3.2 g/dL (2.2-4.2); Glucose 119 mg/dL (74-106); Potassium 3.6 mmol/L (3.5-5.1); Protein, Total 7.2 g/dL (6.4-8.2); Sodium Level 138 mmol/L (136-145); Thyroid Stim Hormone (TSH) 1.35 uIU/mL (0.358-3.74)
[2023-12-20 17:17] LABS: D-Dimer Quantitative (DVT/PE) < 0.27 FEU/ug/m (0.27-0.49)
== END | disposition home or self-care (01) ==
LOC: BIMLAB 15:53
PROVIDERS: PCP Internal Medicine; Referring Provider Nurse Practitioner; Visit Provider Nurse Practitioner
DX: R22.43 Localized swelling, mass and lump, lower limb, bilateral (principal)
CPT/HCPCS: 36415; 80053; 82570; 83880; 84156; 84443; 85379

== ENCOUNTER → 2024-07-22 | Outpatient (CLI) | payer OTHER, SELFPAY ==
[2024-07-22 12:15] LABS: Absolute Neutrophil Count 6.4 X10^3/uL (2.0-7.7); Basophil# 0.05 X10^3/uL; Basophil% 0.5 % (0-1); Eosinophil# 0.21 X10^3/uL; Eosinophils% 2.2 % (0-5); Hematocrit 45.7 % (37-47); Hemoglobin 15.1 g/dL (12.0-15.0); Lymphocyte % 24.9 % (19-41); Mean Corpuscular Volume 84.6 fL (81-99); Mean Platelet Vol. 10.2 fl (6.2-12.0); Monocyte# 0.48 X10^3/uL; NRBC Flagged by Analyzer 0 % (0-5); Neutrophil # 6.44 X10^3/uL (2.7-7.7); Platelet Count 299 K/mm3 (150-450); RBC Distribution Width CV 12.5 % (11.6-14.6); White Blood Count 9.6 K/mm3 (4.4-11.0)
[2024-07-22 12:33] LABS: ALB/GLOB Ratio 1.2 RATIO (0.9-2.4); AST(SGOT) 25 U/L (15-37); Alanine Aminotransfer ALT/SGPT 63 U/L (13-56); Albumin, Serum 4.2 g/dL (3.2-5.0); Alkaline Phosphatase 67 U/L (45-117); Anion Gap 6 (5-15); BUN 15 mg/dL (7-18); BUN/Creat Ratio 20.6 RATIO (10-20); Calcium,Total 9.3 mg/dL (8.5-10.1); Chloride 103 mmol/L (98-107); Cholesterol 157 mg/dL (200); Creatinine, Serum 0.73 mg/dL (0.55-1.02); EST Glomerular Filtration Rate 94 mL/min (>60); Est Glom Filt Rate - Afr Amer 114 mL/min (>60); Globulin 3.5 g/dL (2.2-4.2); Glucose 131 mg/dL (74-106); High Density Lipoprotein 35 mg/dL; Protein, Total 7.7 g/dL (6.4-8.2); Sodium Level 137 mmol/L (136-145); Triglycerides 347 mg/dL; Very Low Density Lipoprotein 69 mg/dL (5-40)
== END | disposition home or self-care (01) ==
LOC: BIMLAB 08:01
PROVIDERS: PCP Internal Medicine; Referring Provider Internal Medicine; Visit Provider Internal Medicine
DX: E11.9 Type 2 diabetes mellitus without complications (principal); I10 Essential (primary) hypertension
CPT/HCPCS: 36415; 80053; 80061; 85025

== ENCOUNTER → 2025-04-11 | Outpatient (CLI) | payer OTHER, SELFPAY ==
[2025-04-11 08:59] LABS: Hematocrit 42.6 % (37-47); Hemoglobin 14.7 g/dL (12.0-15.0); Immature Granulocytes Count 0.050 X10^3/uL (0.0-0.0); Mean Corp Hgb Conc 34.5 g/dL (32-36); Mean Corpuscular Volume 83.2 fL (81-99); Mean Platelet Vol. 9.8 fl (6.2-12.0); NRBC Flagged by Analyzer 0 % (0-5); Platelet Count 283 K/mm3 (150-450); RBC Distribution Width CV 12.2 % (11.6-14.6); RBC Distribution Width SD 37.1 fl (35.1-43.9); Red Blood Count 5.12 M/mm3 (4.2-5.4); White Blood Count 9.0 K/mm3 (4.4-11.0)
[2025-04-11 10:04] LABS: Cholesterol 149 mg/dL (<=200); Low Density Lipoprotein Calc. 65 mg/dL; Triglycerides 204 mg/dL; Very Low Density Lipoprotein 41 mg/dL (5-40); cholesterol:hdl ratio screen 3.46
[2025-04-11 10:29] LABS: AST(SGOT) 21 U/L (<=31); Alanine Aminotransfer ALT/SGPT 29 U/L (<=34); Albumin, Serum 4.5 g/dL (3.5-5.0); Alkaline Phosphatase 52 U/L (35-104); Anion Gap 14 (5-15); BUN 11 mg/dL (4-19); BUN/Creat Ratio 16.1 RATIO (10-20); Calcium,Total 9.1 mg/dL (7.6-11.0); Carbon Dioxide 24.6 mmol/L (21.0-32.0); Chloride 99 mmol/L (98-108); Ferritin 32 ng/mL (22-378); Globulin 2.4 g/dL (2.2-4.2); Glucose 123 mg/dL (70-99); Iron 75 ug/dL (50-170); Iron Binding Capacity,Total 349 ug/dL (250-450); Iron Binding Capacity,Unsat 274 ug/dL (228-428); Potassium 4.1 mmol/L (3.3-5.1); Vitamin B12 402 pg/mL (180-914); Vitamin D,25 Hydroxy 22.0 ng/mL (30-100)
--- OUTSIDE RECORDS SUMMARY | 2025-04-14 07:56 | XMS RPT_ITS | CCD ---
Author Organization [facility] Care Team Providers Care Delivery And Installation Subcontractor Name Role Phone Lyons, CHARGE AUDITOR-C Fide Primary Care Provider Lyons, CHARGE AUDITOR-C Fide Referring Provider Celena CESPEDES, PA Tre Xie Attending Provider Bernard CHARGE AUDITOR, CHARGE AUDITOR-C Shaye Referring Provider Bernard CHARGE AUDITOR, CHARGE AUDITOR-C Shaye Other Provider Dr. Jewel Barth Attending Provider [phone] Lyons, CHARGE AUDITOR-C Fide Primary Care Provider Lyons, CHARGE AUDITOR-C Fide Referring Provider Olga CESPEDES, PA Gracie Attending Provider [phone] River Moore Attending Provider Dr. Christine Christopher Primary Care Provider Dr. Christine Christopher Attending Provider [phone] Dr. Christine Christopher Referring Provider [phone] PHIL Robertson Attending Provider [phone] Dr. Christine Christopher Primary Care Provider Dr. Christine Christopher Attending Provider [phone] Dr. Christine Christopher Referring Provider [phone] PHIL Robertson Attending Provider [phone] Silvio CESPEDES PA Don Attending Provider JULIO Figueroa Attending Provider [phone] Brittany Fonseac Attending Unavailable AddihofBrittany Referring Unavailable Ashwin, Christine Primary Care Unavailable Brittany Fonseca Attending Unavailable AddihoBrittany gutierrez Referring Unavailable [place], Christine Primary Care Unavailable Ashwin, Christine Attending Unavailable [place], Christine Referring Unavailable Ashwin, Christine Primary Care Unavailable Don David Attending Unavailable [place], Christine Referring Unavailable Ashwin, Christine Primary Care Unavailable Tre Perera Attending Unavailable Ashwin, Christine Referring Unavailable Ashwin, Christine Primary Care Unavailable Ashwin, Christine Attending Unavailable Ashwin, Christine Referring Unavailable Ashwin, Christine Primary Care Unavailable Allergies Allergy Classification Reported Allergen(s) Allergy Type Date of Onset Reaction(s) Facility (1 source) Lisinopril Drug Allergy 12-20-20[facility] ([facility] source) Lisinopril Drug Allergy 09-17-2024 [facility] Repository Medications Current Medications Medication Drug Class(es) Dates Sig (Normalized) Sig (Original) cetirizine hydrochloride 10 mg oral tablet (6 sources) Histamine-1 Receptor Antagonist Start: 04-19-2023 End: 08-29-2023 take 10 mg by mouth once daily Cetirizine Active 10 MG PO DAILY August 29, 2023 4:42pm 24 hr desvenlafaxine succinate 50 mg extended release oral tablet (7 sources) Serotonin and Norepinephrine Reuptake Inhibitor Start: 11-19-2023 End: 12-20-2023 take 50 mg by mouth once daily Desvenlafaxine Succinate Active 50 MG PO DAILY December 20, 2023 3:30pm Start: 10-23-2023 End: 11-19-2023 take 1 tablet by mouth once daily Desvenlafaxine Succinate Discontinued 0 .ROUTE .COMPLEX October 23, 2023 3:48pm November 19, 2023 9:57am Take 1 tablet by mouth once daily Start: 10-23-2023 take 1 tablet by ru th once daily Desvenlafaxine Succinate Active 0 .ROUTE .COMPLEX October 23, 2023 3:48pm Take 1 tablet by mouth once daily Start: 08-28-2023 End: 10-23-2023 take 1 tablet by mouth once daily, then take 1 tablet by mouth every twenty-four hours Desvenlafaxine Succinate (Pristiq) 25 mg tablet extended release 24 hr Discontinued 25 MG PO DAILY August 28, 2023 1:00am October 23, 2023 3:49pm famotidine 20 mg oral tablet (7 sources) Histamine-2 Receptor Antagonist Start: 11-19-2023 take 20 mg by mouth once daily Famotidine Active 20 MG PO DAILY November 19, 2023 12:00am Start: 04-19-2023 End: 11-19-2023 take 20 mg by mouth twice daily Famotidine Discontinued 20 MG PO TWICE A DAY August 28, 2023 4:42pm November 19, 2023 6:59am ibuprofen 800 mg oral tablet (5 sources) Nonsteroidal Anti-inflammatory Drug Start: 03-17-2022 take 800 mg by mouth three times daily Ibuprofen Active 800 MG PO THREE TIMES A DAY 60 March 17, 2022 12:00am Do not take in conjunction with other NSAIDs. Tylenol is okay. meloxicam 15 mg oral tablet (8 sources) Nonsteroidal Anti-inflammatory Drug Start: 09-19-2019 End: 11-19-2023 take 15 mg by mouth once daily Meloxicam Active 15 MG PO DAILY November 19, 2023 12:00am rosuvastatin calcium 5 mg oral tablet (10 sources) HMG-CoA Reductase Inhibitor Start: 05-24-2018 End: 08-29-2023 take 5 mg by mouth at bedtime Rosuvastatin Active 5 MG PO AT BEDTIME 90 August 29, 2023 4:42pm Completed/Discontinued Medications Medication Drug Class(es) Dates Sig (Normalized) Sig (Original) amoxicillin 500 mg oral capsule (7 sources) Penicillin-class Antibacterial Start: 09-14-2021 End: 09-24-2021 take 1000 mg by mouth twice daily Amoxicillin Discontinued 1000 MG PO TWICE A DAY 40 September 14, 2021 1:00am September 24, 2021 1:04am amoxicillin 875 mg / clavulanate 125 mg oral tablet (7 sources) Penicillin-class Antibacterial Start: 11-30-2023 End: 12-10-2023 take 1 tablet by mouth every twelve hours Amoxicillin-Pot Clavulanate Discontinued 1 TABLET PO Q12H 20 November 30, 2023 12:00am December 10, 2023 12:05am Start: 09-22-2022 End: 10-02-2022 take 1 tablet by mouth every twelve hours Amoxicillin-Pot Clavulanate Discontinued 1 TABLET PO Q12H 08 06September 22, 2022 1:00am October 02, 2022 1:05am Start: 07-31-2022 End: 08-10-2022 take 1 tablet by mouth every twelve hours Amoxicillin-Pot Clavulanate Discontinued 1 TABLET PO Q12H 08 06July 31, 2022 1:00am August 10, 2022 1:04am azithromycin 250 mg oral tablet (7 sources) Macrolide Antimicrobial Start: 08-24-2018 End: 03-17-2022 take 250 mg by mouth once daily Azithromycin Discontinued 250 MG PO DAILY August 24, 2018 1:00am March 17, 2022 8:31am benzonatate 200 mg oral capsule (12 sources) Non-narcotic Antitussive Start: 11-19-2023 End: 12-20-2023 take 200 mg by mouth three times daily Benzonatate Discontinued 200 MG PO THREE TIMES A DAY November 19, 2023 12:00am December 20, 2023 3:25pm Start: 09-25-2022 End: 04-19-2023 take 200 mg by mouth three times daily Benzonatate Discontinued 200 MG PO THREE TIMES A DAY September 25, 2022 1:00am April 19, 2023 2:04pm Start: 08-24-2018 End: 03-17-2022 take 200 mg by mouth three times daily as needed Benzonatate Discontinued 200 MG PO 3 TIMES DAILY NEEDED August 24, 2018 1:00am March 17, 2022 8:31am 24 hr buPROPion hydrochloride 150 mg extended release oral tablet (8 sources) Aminoketone Start: 08-28-2023 End: 11-19-2023 Bupropion Hcl Discontinued 150 MG PO DAILY August 28, 2023 4:51pm November 19, 2023 6:58am take 1 tablet daily for 7 days, then stop Start: 03-17-2022 End: 08-28-2023 take 300 mg by mouth once daily Bupropion Hcl Discontinued 300 MG PO DAILY March 17, 2022 12:00am August 28, 2023 4:52pm cholecalciferol 1.25 mg oral capsule (7 sources) Vitamin D Start: 05-24-2018 End: 08-28-2023 take 1 capsule by mouth every week Cholecalciferol (Vitamin D3) Discontinued 1 CAP PO EVERY WEEK May 24, 2018 12:00am August 28, 2023 4:18pm doxycycline monohydrate 100 mg oral capsule (9 sources) Tetracycline- class Drug Start: 11-19-2023 End: 12-20-2023 take 100 mg by mouth twice daily Doxycycline Monohydrate Discontinued 100 MG PO TWICE A DAY November 19, 2023 12:00am December 20, 2023 3:25pm Start: 09-19-2021 End: 03-17-2022 take 100 mg by mouth twice daily Doxycycline Monohydrate Discontinued 100 MG PO TWICE A DAY September 19, 2021 1:00am March 17, 2022 8:31am hydroCHLOROthiazide 12.5 mg oral tablet (7 sources) Thiazide Diuretic Start: 05-24-2018 End: 04-19-2023 take 12.5 mg by mouth once daily Hydrochlorothiazide Discontinued 12.5 MG PO DAILY May 24, 2018 12:00am April 19, 2023 2:05pm levoFLOXacin 500 mg oral tablet (3 sources) Quinolone Antimicrobial Start: 10-04-2022 End: 04-19-2023 take 500 mg by mouth once daily Levofloxacin Discontinued 500 MG PO DAILY October 04, 2022 1:00am April 19, 2023 2:05pm lisinopril 10 mg oral tablet (7 sources) Angiotensin Converting Enzyme Inhibitor Start: 05-24-2018 End: 03-17-2022 take 10 mg by mouth once daily Lisinopril Discontinued 10 MG PO DAILY May 24, 2018 12:00am March 17, 2022 8:31am 24 hr loratadine 10 mg / pseudoephedrine sulfate 240 mg extended release oral tablet (5 sources) alpha-Adrenergic Agonist Start: 03-17-2022 End: 04-19-2023 take 1 tablet by mouth once daily Loratadine-Pseudoephed rine (Allergy Relief,Nasal Decongest) 10-240 mg tablet extended release 24 hr Discontinued 1 TABLET PO DAILY March 17, 2022 12:00am April 19, 2023 2:05pm losartan potassium 50 mg oral tablet (7 sources) Angiotensin 2 Receptor Sury Start: 04-19-2023 End: 11-19-2023 take 50 mg by mouth once daily Losartan Discontinued 50 MG PO DAILY August 29, 2023 4:42pm November 19, 2023 6:59am metFORMIN hydrochloride 500 mg oral tablet (5 sources) Biguanide Start: 03-17-2022 End: 08-28-2023 take 500 mg by mouth twice daily Metformin Discontinued 500 MG PO TWICE A DAY March 17, 2022 12:00am August 28, 2023 4:18pm methylPREDNISolone 4 mg oral tablet (4 sources) Corticosteroid Start: 11-30-2023 End: 12-06-2023 take 1 tablet by mouth once Methylprednisolone (Medrol (Siva)) 4 mg tablets,dose pack Discontinued 4 MG PO per package directions 07 02November 30, 2023 12:00am December 06, 2023 12:07am Start: 09-25-2022 End: 04-19-2023 take 1 tablet by mouth once Methylprednisolone (Medrol (Siva)) 4 mg tablets,dose pack Discontinued 0 PO per package directions September 25, 2022 1:00am April 19, 2023 2:06pm PO PER PKG DIR spironolactone 25 mg oral tablet (5 sources) Aldosterone Antagonist Start: 03-17-2022 End: 04-19-2023 take 25 mg by mouth once daily Spironolactone Discontinued 25 MG PO DAILY March 17, 2022 12:00am April 19, 2023 2:06pm Problems Active Problems Problem Classification Problem Date Documented Da te Episodic/Chronic Abdominal pain (11 sources) Abdominal pain; Translations: [Unspecified abdominal pain] 04-19-2023 Episodic Anxiety disorders (4 sources) Other specified anxiety disorders; Translations: [Dysthymic disorder] 08-28-2023 Chronic Diabetes mellitus without complication (9 sources) Type 2 diabetes mellitus; Translations: [Type 2 diabetes mellitus without complications] Onset: 08-21-2024 04-19-2023 Chronic Disorders of lipid metabolism (1 source) Mixed hyperlipidemia; Translations: [Mixed hyperlipidemia] Onset: 04-11-2025 Chronic Essential hypertension (8 sources) Essential hypertension; Translations: [Essential (primary) hypertension] Onset: 07-22-2024 04-19-2023 Chronic Malaise and fatigue (1 source) Other fatigue; Translations: [Other fatigue] Onset: 04-11-2025 Episodic Mood disorders (2 sources) Depressive disorder; Translations: [Depression] 12-20-2023 Chronic Nutritional deficiencies (1 source) Vitamin D deficiency, unspecified; Translations: [Vitamin D deficiency, unspecified] Onset: 04-11-2025 Chronic Nutritional deficiencies (3 sources) Vitamin deficiency; Translations: [Vitamin deficiency, unspecified] 04-19-2023 Episodic Osteoarthritis (3 sources) Arthritis; Translations: [Unspecified osteoarthritis, unspecified site] 04-19-2023 Chronic Other bone disease and musculoskeletal deformities (1 source) Other specified disorders of bone, thigh; Translations: [Other disorders of bone and cartilage] Episodic Other connective tissue disease (1 source) Trochanteric bursitis, right hip; Translations: [Enthesopathy of hip region] Episodic Other nervous system disorders (1 source) Lesion of sciatic nerve, right lower limb; Translations: [Lesion of sciatic nerve] Chronic Other non-traumatic joint disorders (4 sources) Pain in right hip; Translations: [Pain in joint, pelvic region and thigh] 08-28-2023 Episodic Other nutritional; endocrine; and metabolic disorders (1 source) Weight gain; Translations: [Abnormal weight gain] 12-20-2023 Episodic Other nutritional; endocrine; and metabolic disorders (1 source) Abnormal weight gain; Translations: [Abnormal weight gain] 12-20-2023 Episodic Other skin disorders (1 source) Bilateral localized swelling of lower legs; Translations: [Localized swelling, mass and lump, lower limb, bilateral] 12-20-2023 Episodic Other skin disorders (1 source) Localized swelling, mass and lump, lower limb, bilateral; Translations: [Swelling of limb] 12-20-2023 Episodic Other upper respiratory disease (3 sources) Seasonal allergy; Translations: [Other seasonal allergic rhinitis] 04-19-2023 Chronic Other upper respiratory infections (2 sources) Sinusitis; Translations: [Chronic sinusitis, unspecified] 11-19-2023 Chronic Otitis media and related conditions (3 sources) Acute bilateral otitis media ; Translations: [Otitis media, unspecified, bilateral] 04-18-2023 Episodic Spondylosis; intervertebral disc disorders; other back problems (1 source) Sacrococcygeal disorders, not elsewhere classified; Translations: [Disorders of sacrum] Episodic Past or Other Problems Problem Classification Problem Date Documented Da te Episodic/Chronic Other upper respiratory infections (14 sources) Acute frontal sinusitis; Translations: [Acute frontal sinusitis, unspecified] Onset: 08-08-2024 Episodic Results Test Name Value Interpretation Reference Range Facility CBC W/Diff, Automatedon 08-2 Absolute Lymph 2.37 X10 3/uL Normal 0.83-4.51 [facility] Comment on above: Performed By: #### L 500.4050, L503.6030, L501.9985, L506.1001, L506.0400, L503.0106, L501.9520, L100.0100, L500.4100, L503.6550 #### [facility] [address] [facility] [place], [place], [id number] ([phone]) Absolute Neut 5.9 X10 3/uL Normal 2.0-7.7 [facility] Comment on above: Performed By: #### L 500.4050, L503.6030, L501.9985, L506.1001, L506.0400, L503.0106, L501.9520, L100.0100, L500.4100, L503.6550 #### [facility] [address] [facility] [place], [place], [id number] (467 Basophils/100 WBC (Bld) 0.6 % Normal 0-1 [facility] Comment on above: Performed By: #### L 500.4050, L503.6030, L501.9985, L506.1001, L506.0400, L503.0106, L501.9520, L100.0100, L500.4100, L503.6550 #### [facility] [address] [place], [place], [phone] ([phone] Eosinophils/100 WBC (Bld) 2.5 % Normal 0-5 [facility] Comment on above: Performed By: #### L 500.4050, L503.6030, L501.9985, L506.1001, L506.0400, L503.0106, L501.9520, L100.0100, L500.4100, L503.6550 #### [facility] [address] [facility] [place], [place], [id number] Erythrocyte distribution width (RBC) [Ratio] 12.2 % Normal 11.6-14.6 [facility] Comment on above: Performed By: #### L 500.4050, L503.6030, L501.9985, L506.1001, L506.0400, L503.0106, L501.9520, L100.0100, L500.4100, L503.6550 #### [facility] [address] [facility], [address] Hematocrit (Bld) [Volume fraction] 42.6 % Normal 37-47 [facility] Comment on above: Performed By: #### L 500.4050, L503.6030, L501.9985, L506.1001, L506.0400, L503.0106, L501.9520, L100.0100, L500.4100, L503.6550 #### [facility] [address] [facility], [address] Hemoglobin (Bld) [Mass/Vol] 14.7 g/dL Normal 12.0-15.0 [facility] Comment on above: Performed By: #### L 500.4050, L503.6030, L501.9985, L506.1001, L506.0400, L503.0106, L501.9520, L100.0100, L500.4100, L503.6550 #### [facility] [address] [facility], [address] IG% 0.600 Normal 0.0-0.9 [facility] Comment on above: Result Comment: IG% - Immature Granulocytes (promyelocytes, myelocytes and metamyelocytes) > 1% indicates that a LEFT SHIFT is Present. Performed By: #### L 500.4050, L503.6030, L501.9985, L506.1001, L506.0400, L503.0106, L501.9520, L100.0100, L500.4100, L503.6550 #### [facility] [address] [place], [address] Lymphocytes/100 WBC (Bld) 26.2 % Normal 19-41 [facility] Comment on above: Performed By: #### L 500.4050, L503.6030, L501.9985, L506.1001, L506.0400, L503.0106, L501.9520, L100.0100, L500.4100, L503.6550 #### [facility] [address] [facility], [address] MCH (RBC) [Entitic mass] 28.7 pg Normal 27.0-32.0 [facility] Comment on above: Performed By: #### L 500.4050, L503.6030, L501.9985, L506.1001, L506.0400, L503.0106, L501.9520, L100.0100, L500.4100, L503.6550 #### [facility] [address] [facility], [address] MCHC (RBC) [Mass/Vol] 34.5 g/dL Normal 32-36 [facility] Comment on above: Performed By: #### L 500.4050, L503.6030, L501.9985, L506.1001, L506.0400, L503.0106, L501.9520, L100.0100, L500.4100, L503.6550 #### [facility] [address] [facility] [address] [address] [place], [address] MCV (RBC) [Entitic vol] 83.2 fL Normal 81-99 [facility] Comment on above: Performed By: #### L 500.4050, L503.6030, L501.9985, L506.1001, L506.0400, L503.0106, L501.9520, L100.0100, L500.4100, L503.6550 #### [facility] [address] [facility], [address] Monocytes/100 WBC (Bld) 5.0 % Normal 0-10 [facility] Comment on above: Performed By: #### L 500.4050, L503.6030, L501.9985, L506.1001, L506.0400, L503.0106, L501.9520, L100.0100, L500.4100, L503.6550 #### [facility] [address] [place], [address] (513 Neutrophils/100 WBC (Bld) 65.1 % Normal 47-70 [facility] Comment on above: Performed By: #### L 500.4050, L503.6030, L501.9985, L506.1001, L506.0400, L503.0106, L501.9520, L100.0100, L500.4100, L503.6550 #### [facility] [address] [place], [place], [id number] (087 Nucleated RBC (Bld) [#/Vol] 0 10*3/uL Normal 0-5 [facility] Comment on above: Performed By: #### L 500.4050, L503.6030, L501.9985, L506.1001, L506.0400, L503.0106, L501.9520, L100.0100, L500.4100, L503.6550 #### [facility] [address] [facility], [address] ( Platelet mean volume (Bld) [Entitic vol] 9.8 fL Normal 6.2-12.0 [facility] Comment on above: Performed By: #### L 500.4050, L503.6030, L501.9985, L506.1001, L506.0400, L503.0106, L501.9520, L100.0100, L500.4100, L503.6550 #### [facility] [address] [place], [address] Platelets (Bld) [#/Vol] 283 10*3/uL Normal 150-450 [facility] Comment on above: Performed By: #### L 500.4050, L503.6030, L501.9985, L506.1001, L506.0400, L503.0106, L501.9520, L100.0100, L500.4100, L503.6550 #### [facility] [address] [facility], [address] RBC (Bld) [#/Vol] 5.12 10*6/uL Normal 4.2-5.4 [facility] Comment on above: Performed By: #### L 500.4050, L503.6030, L501.9985, L506.1001, L506.0400, L503.0106, L501.9520, L100.0100, L500.4100, L503.6550 #### [facility] [address] [facility] [place], [address] RDW SD 37.1 fl Normal 35.1-43.9 [facility] Comment on above: Performed By: #### L 500.4050, L503.6030, L501.9985, L506.1001, L506.0400, L503.0106, L501.9520, L100.0100, L500.4100, L503.6550 #### [facility] [address] [facility] [address] [place], [address] WBC (Bld) [#/Vol] 9.0 10*3/uL Normal 4.4-11.0 [facility] Comment on above: Performed By: #### L 500.4050, L503.6030, L501.9985, L506.1001, L506.0400, L503.0106, L501.9520, L100.0100, L500.4100, L503.6550 #### [facility] [address] [place], [place], [id number] Comprehensive Metabolic Prof moon 04-11-2025 Albumin [Mass/Vol] 4.5 g/dL Normal 3.5-5.0 [facility] Comment on above: Result Comment: AMENDED REPORT 04/11/251028 ALB previously reported as: 4.4 g/dL Performed By: #### L 500.4050, L503.6030, L501.9985, L506.1001, L506.0400, L503.0106, L501.9520, L100.0100, L500.4100, L503.6550 #### [facility] [address] [facility] [address] [place], [address] Albumin/Globulin [Mass ratio] 1.9 {ratio} Normal 0.9-2.4 [facility] Comment on above: Result Comment: AMENDED REPORT 04/11/251028 A/G previously reported as: 1.7 RATIO Performed By: #### L 500.4050, L503.6030, L501.9985, L506.1001, L506.0400, L503.0106, L501.9520, L100.0100, L500.4100, L503.6550 #### [facility] [address] [place], [place], [id number] ALK PHOS 52 U/L Normal 35-104 [facility] Comment on above: Result Comment: AMENDED REPORT 04/11/251028 ALK P previously reported as: 54 U/L Performed By: #### L 500.4050, L503.6030, L501.9985, L506.1001, L506.0400, L503.0106, L501.9520, L100.0100, L500.4100, L503.6550 #### [facility] [address] [place], [address] ALT [Catalytic activity/Vol] 29 U/L Normal <=34 [facility] Comment on above: Performed By: #### L 500.4050, L503.6030, L501.9985, L506.1001, L506.0400, L503.0106, L501.9520, L100.0100, L500.4100, L503.6550 #### [facility] [address] [place], [address] AST [Catalytic activity/Vol] 21 U/L Normal <=31 [facility] Comment on above: Performed By: #### L 500.4050, L503.6030, L501.9985, L506.1001, L506.0400, L503.0106, L501.9520, L100.0100, L500.4100, L503.6550 #### [facility] [address] [place], [address] Bilirubin [Mass/Vol] 0.61 mg/dL Normal 0.00-1.30 [facility] Comment on above: Result Comment: AMENDED REPORT 04/11/251028 T BILI previously reported as: 0.54 mg/dL Performed By: #### L 500.4050, L503.6030, L501.9985, L506.1001, L506.0400, L503.0106, L501.9520, L100.0100, L500.4100, L503.6550 #### [facility] [address] [place], [address] BUN/CRE 16.1 RATIO Normal 10-20 [facility] Comment on above: Result Comment: AMENDED REPORT 04/11/259 BUN/CRE previously reported as: 15.6 RATIO Performed By: #### L 500.4050, L503.6030, L501.9985, L506.1001, L506.0400, L503.0106, L501.9520, L100.0100, L500.4100, L503.6550 #### [facility] [address] [place], [address] Calcium [Mass/Vol] 9.1 mg/dL Normal 7.6-11.0 [facility] Comment on above: Result Comment: AMENDED REPORT 04/11/251028 CA previously reported as: 9.2 mg/dL Performed By: #### L 500.4050, L503.6030, L501.9985, L506.1001, L506.0400, L503.0106, L501.9520, L100.0100, L500.4100, L503.6550 #### [facility] [address] [place], [address] Chloride [Moles/Vol] 99 mmol/L Normal 98-108 [facility] Comment on above: Result Comment: AMENDED REPORT 04/11/25 1029 CL previously reported as: 100 mmol/L Performed By: #### L 500.4050, L503.6030, L501.9985, L506.1001, L506.0400, L503.0106, L501.9520, L100.0100, L500.4100, L503.6550 #### [facility] [address] [place], [address] CO2 [Moles/Vol] 24.6 mmol/L Normal 21.0-32.0 [facility] Comment on above: Result Comment: AMENDED REPORT 04/11/259 CO2 previously reported as: 24.0 mmol/L Performed By: #### L 500.4050, L503.6030, L501.9985, L506.1001, L506.0400, L503.0106, L501.9520, L100.0100, L500.4100, L503.6550 #### [facility] [address] [place], [address] Creatinine [Mass/Vol] 0.71 mg/dL Normal 0.70-1.20 [facility] Comment on above: Performed By: #### L 500.4050, L503.6030, L501.9985, L506.1001, L506.0400, L503.0106, L501.9520, L100.0100, L500.4100, L503.6550 #### [facility] [address] [place], [address] GAP 14 Normal 5-15 [facility] Comment on above: Result Comment: AMENDED REPORT 04/11/251028 GAP previously reported as: 14 Performed By: #### L 500.4050, L503.6030, L501.9985, L506.1001, L506.0400, L503.0106, L501.9520, L100.0100, L500.4100, L503.6550 #### [facility] [facility] [address] [place], [address] Globulin (S) [Mass/Vol] 2.4 g/dL Normal 2.2-4.2 [facility] Comment on above: Result Comment: AMENDED REPORT 04/11/251028 GLOB previously reported as: 2.6 g/dL Performed By: #### L 500.4050, L503.6030, L501.9985, L506.1001, L506.0400, L503.0106, L501.9520, L100.0100, L500.4100, L503.6550 #### [facility] [address] [place], [address] Glucose [Mass/Vol] 123 mg/dL High 70-99 [facility] Comment on above: Performed By: #### L 500.4050, L503.6030, L501.9985, L506.1001, L506.0400, L503.0106, L501.9520, L100.0100, L500.4100, L503.6550 #### [facility] [address] [place], [place], [id number] Potassium [Moles/Vol] 4.1 mmol/L Normal 3.3-5.1 [facility] Comment on above: Performed By: #### L 500.4050, L503.6030, L501.9985, L506.1001, L506.0400, L503.0106, L501.9520, L100.0100, L500.4100, L503.6550 #### [facility] [address] [place], [place], [id number] Sodium [Moles/Vol] 137 mmol/L Normal 133-145 [facility] Comment on above: Result Comment: AMENDED REPORT 04/11/251028 NA previously reported as: 138 mmol/L Performed By: #### L 500.4050, L503.6030, L501.9985, L506.1001, L506.0400, L503.0106, L501.9520, L100.0100, L500.4100, L503.6550 #### [facility] [address] [place], [place], [id number] T PROT 6.9 g/dL Normal 5.9-8.4 [facility] Comment on above: Result Comment: AMENDED REPORT 04/11/251028 T PROT previously reported as: 7.1 g/dL Performed By: #### L 500.4050, L503.6030, L501.9985, L506.1001, L506.0400, L503.0106, L501.9520, L100.0100, L500.4100, L503.6550 #### [facility] [address] [place], [address] Urea nitrogen [Mass/Vol] 11 mg/dL Normal 4-19 [facility] Comment on above: Performed By: #### L 500.4050, L503.6030, L501.9985, L506.1001, L506.0400, L503.0106, L501.9520, L100.0100, L500.4100, L503.6550 #### [facility] [address] [place], [address] Ferritinon 04-11-2025 Ferritin [Mass/Vol] 32 ng/mL Normal 22-378 [facility] Comment on above: Result Comment: AMENDED REPORT 04/11/25 1029 FERRITIN previously reported as: 35 ng/mL Performed By: #### L 500.4050, L503.6030, L501.9985, L506.1001, L506.0400, L503.0106, L501.9520, L100.0100, L500.4100, L503.6550 #### [facility] [address] [place], [address] Hemoglobin A1con 04-11-2025 HbA1c (Bld) [Mass fraction] 6.1 % High <=5.6 [facility] Comment on above: Result Comment: Norm al < 5.7 % Prediabetic 5.7 - 6.4 % Diabetic >or= 6.5 % Please note range changes. Performed By: #### L 500.4050, L503.6030, L501.9985, L506.1001, L506.0400, L503.0106, L501.9520, L100.0100, L500.4100, L503.6550 #### [facility] [address] [place], [address] Iron+Iron Binding Capacityon 04-11-2025 Iron [Mass/Vol] 75 ug/dL Normal 50-170 [facility] Comment on above: Performed By: #### L 500.4050, L503.6030, L501.9985, L506.1001, L506.0400, L503.0106, L501.9520, L100.0100, L500.4100, L503.6550 ####[facility] [address] [place], [place], [id number] IRON SATURATION 21.0 Normal 13-59 [facility] Comment on above: Performed By: #### L 500.4050, L503.6030, L501.9985, L506.1001, L506.0400, L503.0106, L501.9520, L100.0100, L500.4100, L503.6550 ####[facility] [address] [place], [place], [id number] TIBC 349 ug/dL Normal 250-450 [facility] Comment on above: Performed By: #### L 500.4050, L503.6030, L501.9985, L506.1001, L506.0400, L503.0106, L501.9520, L100.0100, L500.4100, L503.6550 ####[facility] [address] [place], [place], [id number] UIBC 274 ug/dL Normal 228-428 [facility] Comment on above: Performed By: #### L 500.4050, L503.6030, L501.9985, L506.1001, L506.0400, L503.0106, L501.9520, L100.0100, L500.4100, L503.6550 ####[facility] [address] [place], [place], [address] Lipid Profileon 04-11-2025 CHOL:HDL 3.46 Normal [facility] Comment on above: Performed By: #### L 500.4050, L503.6030, L501.9985, L506.1001, L506.0400, L503.0106, L501.9520, L100.0100, L500.4100, L503.6550 #### [facility] [address] [place], [address] Cholesterol [Mass/Vol] 149 mg/dL Normal <=200 [facility] Comment on above: Result Comment: Chol esterol level, Desirable <200 mg/dL Borderline high cholesterol 200-239 mg/dL High cholesterol >=240 mg/dL Recommendations of the NCEP Adult Treatment Panel for the following risk-cutoff thresholds for the [place] population. Performed By: #### L 500.4050, L503.6030, L501.9985, L506.1001, L506.0400, L503.0106, L501.9520, L100.0100, L500.4100, L503.6550 #### [facility] [address] [place], [address] Cholesterol in HDL [Mass/Vol] 43 mg/dL Normal [facility] Comment on above: Result Comment: Maria Elena onal Cholesterol Education Program (NCEP) guidelines: <40 mg/dL: Low HDL-cholesterol (major risk factor for CHD) >= 60 mg/dL: High HDL-cholesterol (negative risk factor for CHD) HDL-cholesterol is affected by a number of factors, e.g. smoking, exercise, hormones, sex and age. Performed By: #### L 500.4050, L503.6030, L501.9985, L506.1001, L506.0400, L503.0106, L501.9520, L100.0100, L500.4100, L503.6550 #### [facility] [address] [place], [address] Cholesterol in LDL [Mass/Vol] 65 mg/dL Normal [facility] Comment on above: Result Comment: Bord wolizw=250-653 mg/dL Higher Pksd=288 mg/dL or greater Friedwald Equation for LDL-C Performed By: #### L 500.4050, L503.6030, L501.9985, L506.1001, L506.0400, L503.0106, L501.9520, L100.0100, L500.4100, L503.6550 #### [facility] [address] [place], [place], [id number] Cholesterol in VLDL [Mass/Vol] 41 mg/dL High 5-40 [facility] Comment on above: Performed By: #### L 500.4050, L503.6030, L501.9985, L506.1001, L506.0400, L503.0106, L501.9520, L100.0100, L500.4100, L503.6550 #### [facility] [address] [place], [place], [address] Triglyceride [Mass/Vol] 204 mg/dL High [facility] Comment on above: Result Comment: The drugs N-Acetylcysteine and Metamizole may falsely depress this assay. Normal range: <150 mg/dL Borderline High: 150-199 mg/dL High: 200-499 mg/dL Very High: >500 mg/dL Performed By: #### L 500.4050, L503.6030, L501.9985, L506.1001, L506.0400, L503.0106, L501.9520, L100.0100, L500.4100, L503.6550 #### [facility] [address] [facility] [place], [place], [id number] T4 Free Directon 04-11-2025 T4 FREE DIRECT 0.90 ng/dL Normal 0.76-1.46 [facility] Comment on above: Result Comment: AMENDED REPORT 04/11/25 1029 Free T4 previously reported as: 1.00 ng/dL Performed By: #### L 500.4050, L503.6030, L501.9985, L506.1001, L506.0400, L503.0106, L501.9520, L100.0100, L500.4100, L503.6550 ####[facility] [address] [place], [place], [address] Thyroid Stim Hormone (TSH)on 04-11-2025 TSH 1.170 uIU/mL Normal 0.300-4.200 [facility] Comment on above: Result Comment: AMENDED REPORT 04/11/251028 TSH previously reported as: 1.160 uIU/mL Performed By: #### L 500.4050, L503.6030, L501.9985, L506.1001, L506.0400, L503.0106, L501.9520, L100.0100, L500.4100, L503.6550 #### [facility] [address] [place], [place], [address] Vitamin B12on 04-11-2025 Cobalamin (Vitamin B12) [Mass/Vol] 402 pg/mL Normal 180-914 [facility] Comment on above: Result Comment: AMENDED REPORT 04/11/251028 Vitamin B12 previously reported as: 415 pg/mL Performed By: #### L 500.4050, L503.6030, L501.9985, L506.1001, L506.0400, L503.0106, L501.9520, L100.0100, L500.4100, L503.6550 #### [facility] [address] [place], [place], [address] Vitamin D,25 Hydroxyon 04-11 Vitamin D 25-OH 22.0 ng/mL Low 30-100 [facility] Comment on above: Result Comment: Joanie min D Status Deficiency: <20 ng/mL (50nmol/L) Insufficiency: 20-30 ng/mL (50-75 nmol/L) Sufficiency: 30-100 ng/mL (75-250 nmol/L) Toxicity: >100 ng/mL (>250 nmol/L) AMENDED REPORT 04/11/251028 Vitamin D 25-OH previously reported as: 23.8 L ng/mL Vitamin D Status Deficiency: <20 ng/mL (50nmol/L) Insufficiency: 20-30 ng/mL (50-75 nmol/L) Sufficiency: 30-100 ng/mL (75-250 nmol/L) Toxicity: >100 ng/mL (>250 nmol/L) Performed By: #### L 500.4050, L503.6030, L501.9985, L506.1001, L506.0400, L503.0106, L501.9520, L100.0100, L500.4100, L503.6550 ####[facility] [address] [place], [address] Urgent Care Visit Reporton 0 09-17-2024 Urgent Care Visit Report [facility] [address], [address] [place] [address] OFFICE VISIT Date of Service: 09/17/24 MR#: [id number] Acct: [id number] Name: SOSA VALLEJO Rep #: [id number] : 1985 Provider: RUBINA Barbosa Age/Sex: 38/F Location: [facility] Status: Signed Intake Vital Signs 08/08/24 10:55 09/17/24 09:40 Height 5 ft 6 in Weight: 175 lb 2 oz BMI 28.3 BP 122/60 H 130/60 H Blood Pressure Location Lt brachial Position Sitting Sitting Respiration 15 Pulse 96 100 Pulse Source NIBP Temp 99.1 F 98.5 F Temp Source Oral Oral Pulse Oximetry (%) 98 98 Oxygen Delivery Method room air room air Intake Visit Reasons: ERWIN/COUGH/BA Chief Complaint: ERWIN, BA, cough, congest, fever, ear pain Channeler Insole Required: No Is patient in pain?: Yes Allergies lisinopril Adverse Reaction (Unknown, Verified 09/17/24 09:46) cough Is last menstrual period known: No Post menopausal: No Patient : No Have you fallen in the past year?: No Nurse's Note: ERWIN, BA, cough, congest, fever, ear pain x 3 days. exposed to multiple illnesses at work. [facility] Medical History Depression High cholesterol Vitamin deficiency Hormone deficiency Arthritis Seasonal allergies Diabetes mellitus Hypertension Surgical History History of removal of ovarian cyst Family History Mother Breast cancer 50s Arthritis Paranoid schizophrenia Grandfather Myocardial infarction Hypertension Heart disease Arthritis Grandmother Hypertension Osteopenia Arthritis Father Hypertension DVT (deep venous thrombosis) Arthritis Social History (Updated 07/22/24 @ 07:[address] Christine Christopher MD) household members: spouse current occupational status: employed current occupation: [employer] work Smoking Status: Never smoker Electronic Cigarette Use: not used alcohol intake: current alcohol intake frequency: holidays/special occasions only substance use type: does not use seatbelt use: always do you feel safe at home: Yes HPI HPI Chief Complaint: ERWIN, BA, cough, congest, fever, ear pain Details: SOSA VALLEJO, is a 38 F who presents to the office today for initial evaluation in the [facility] for approximately 48-hour history of persistent fever, chills, cough, ERWIN, myalgias, fatigue, AU pain.??? No complaints of chest pain or shortness of breath or dyspnea on exertion. Nonsmoker. Several close contacts recently diagnosed with similar URI complaints. No over the counter taken to assist. No other associated symptoms and no other alleviating/aggravat ing factors. ROS Const Constitutional: No other (As above) Exam Const General: cooperative, healthy appearing and no acute distress Orientation: alert, awake and oriented x3 HENMT Head: normal to inspection Ears: hearing grossly normal bilaterally, external ears normal, TM's normal bilaterally and EAC's normal Nose: external nose normal, nares normal, septum normal and clear nasal discharge Face and sinus: normal facial exam, sinuses nontender and face symmetric Mouth: oral mucosae normal, lip normal, tongue normal and oropharynx normal Throat: posterior oropharynx normal, tonsils normal, uvula midline and no postnasal drainage Eyes General: appearance normal, both eyes and all related structures Neck Neck: normal visual inspection, full ROM, no lymphadenopathy, no meningeal signs and supple Neck mass: No Thyroid: thyroid normal Lymphatic: no lymphadenopathy noted Chest Chest palpation inspection: normal inspection of the chest Resp Effort Inspection: normal respiratory effort, able to speak in complete sentences and cough Quality of cough: wet (nonproductive in office today) Auscultation: Bilateral: Clear to Auscultation Cardio Palpation: normal PMI Rate: tachycardic Rhythm: regular rhythm Heart Sounds: S1 normal, S2 normal, no gallops, no murmurs and no rubs Pulses: radial pulses present Skin General: no rashes or lesions noted Neuro General: patient alert, patient awake and patient oriented x3 Cognition: normal cognition Speech: speech normal Psych Appearance: grossly normal Mental Status: mental status grossly normal Mood: congruent mood Affect: normal affect Speech and Movement: speech and movement normal Attitude: cooperative Diagnoses Influenza A??? J10.1 Assessment and Plan Assessment and Plan (1) Influenza A: Status: Acute Plan: See POC results. Tamiflu and benzonatate as prescribed today. Supportive measures as instructed today, and work/school excuse as provided. Follow-up with PCP in 5 to 7 days should symptoms not improve, ED soon (more content not included)... Normal [facility] Visit Reporton 1 10-09-2023 Urgent Care Visit Report [facility] [address], [address] [place] [address] OFFICE VISIT Date of Service: 08/08/24 MR#: [id number] Acct: [id number] Name: SOSA VALLEJO Rep #: [id number] : 1985 Provider: RUBINA Larose Age/Sex: 38/F Location: [facility] Status: Signed Intake Vital Signs 07/22/24 07:34 08/08/24 10:55 Height 5 ft 6 in 5 ft 6 in Weight: 175 lb 175 lb 2 oz BMI 28.2 28.3 BP 134/84 H 122/60 H Blood Pressure Location Lt brachial Position Sitting Sitting Respiration 16 Pulse 84 96 Pulse Source Monitor Temp 99.2 F H 99.1 F Temp Source Temporal Oral Pulse Oximetry (%) 98 98 Oxygen Delivery Method room air room air Intake Visit Reasons: SINUS PRESSURE Chief Complaint: edema Accompanied by: Self Allergies lisinopril Adverse Reaction (Unknown, Verified 08/08/24 10:55) cough Medications ???Medication ???Instructions ???Recorded ???Confirmed ???Type ibuprofen 800 mg tablet 800 mg PO TID PRN pain #60 tabs 03/17/22 08/08/24 Rx famotidine 20 mg tablet 20 mg PO DAILY 11/19/23 08/08/24 History meloxicam 15 mg tablet 15 mg PO DAILY 11/19/23 08/08/24 History rosuvastatin 5 mg tablet 5 mg PO QHS #90 tabs 03/31/24 08/08/24 Rx cetirizine 10 mg tablet (Allergy 10 mg PO DAILY #90 TABLETS 06/12/24 08/08/24 Rx Relief (cetirizine)) losartan 50 mg tablet 50 mg PO DAILY #90 TABLETS 07/22/24 08/08/24 Rx metformin 500 mg tablet 500 mg PO DAILY #30 TABLETS 07/22/24 08/08/24 Rx montelukast 10 mg tablet 10 mg PO QHS #90 TABLETS 07/22/24 08/08/24 Rx amoxicillin 875 mg-potassium 1 tab PO Q12H 10 days #20 tabs 08/08/24 08/08/24 Rx clavulanate 125 mg tablet Nurse's Note: Patient has sinus pressure and stuff nose and pressure in her head,eyes and ears. patient states the roof of her mouth hurts. Patient states this has been going on for 1.5 weeks. [facility] Medical History Depression High cholesterol Vitamin deficiency Hormone deficiency Arthritis Seasonal allergies Diabetes mellitus Hypertension Surgical History History of removal of ovarian cyst Family History Mother Breast cancer 50s Arthritis Paranoid schizophrenia Grandfather Myocardial infarction Hypertension Heart disease Arthritis Grandmother Hypertension Osteopenia Arthritis Father Hypertension DVT (deep venous thrombosis) Arthritis Social History (Updated 07/22/24 @ 07:[address] Christine Christopher MD) household members: spouse current occupational status: employed current occupation: warehouse work Smoking Status: Never smoker Electronic Cigarette Use: not used alcohol intake: current alcohol intake frequency: holidays/special occasions only substance use type: does not use seatbelt use: always do you feel safe at home: Yes HPI HPI Chief Complaint: edema Details: SOSA VALLEJO, is a 38 F who presents to the office today for complaint of sinus congestion/pressure and pain as well as headache for the past week and a half. Patient denies fever, chills, sweats. No nausea, vomiting or diarrhea. No loss of taste or smell. No other associated symptoms or alleviating/aggravat ing factors. ROS Const Constitutional: No other (6 system ROS completed with pertinent findings in the HPI otherwise normal.) Exam Const General: cooperative and healthy appearing HENMT Head: normal to inspection Ears: hearing grossly normal bilaterally, TM's normal bilaterally and EAC's normal Nose: nasal discharge purulent Face and sinus: sinus tenderness frontal and maxillary Mouth: oral mucosae normal Throat: abnormal tonsil bilaterally erythema and hypertrophy 1+ and postnasal drainage Resp Effort Inspection: normal respiratory effort Auscultation: Bilateral: Clear to Auscultation Cardio Palpation: normal PMI Rate: regular rate Rhythm: regular rhythm Neuro General: patient alert and CN's II-XI intact bilaterally Psych Appearance: grossly normal Mental Status: mental status grossly normal Coding Level of Care Code Off vis,est,level 3 Diagnoses Acute sinusitis J01.90 Assessment and Plan Assessment and Plan (1) Acute sinusitis: Status: Acute Medications: New amoxicillin-pot clavulanate 875-125 mg 1 TAB PO Q12H 20 tabs 0RF 10 days J01.90 - Acute sinusitis, unspecified Plan Augmentin as prescribed today. Encouraged to get plenty of rest, drink lots of clear liquids, and use Tylenol or Ibuprofen (unless contraindicated) for fever and comfort. Patient also educated on other symptomatic management techniques. To be seen in 7-10 days if no improvement; sooner if worsening of symptoms. Patient adv (more content not included)... Normal [facility] CBC W/Diff, Automatedon 12-0 -2023 Absolute Lymph 2.40 X10 3/uL Normal 0.83-4.51 [facility] Comment on above: Performed By: #### L 500.4050, L500.4100, L100.0100 ####[facility] [address] [place], [place], [id number] Absolute Neut 6.4 X10 3/uL Normal 2.0-7.7 [facility] Comment on above: Performed By: #### L 500.4050, L500.4100, L100.0100 ####[facility] [address] [place], [address] Basophils/100 WBC (Bld) 0.5 % Normal 0-1 [facility] Comment on above: Performed By: #### L 500.4050, L500.4100, L100.0100 ####[facility] [address] [place], [address] Eosinophils/100 WBC (Bld) 2.2 % Normal 0-5 [facility] Comment on above: Performed By: #### L 500.4050, L500.4100, L100.0100 ####[facility] [address] [place], [address] Erythrocyte distribution width (RBC) [Ratio] 12.5 % Normal 11.6-14.6 [facility] Comment on above: Performed By: #### L 500.4050, L500.4100, L100.0100 ####[facility] [address] [place], [address] Hematocrit (Bld) [Volume fraction] 45.7 % Normal 37-47 [facility] Comment on above: Performed By: #### L 500.4050, L500.4100, L100.0100 ####[facility] [address] [place], [address] Hemoglobin (Bld) [Mass/Vol] 15.1 g/dL High 12.0-15.0 [facility] Comment on above: Performed By: #### L 500.4050, L500.4100, L100.0100 ####[facility] [address] [place], [address] IG% 0.400 Normal 0.0-0.9 [facility] Comment on above: Result Comment: IG% - Immature Granulocytes (promyelocytes, myelocytes and metamyelocytes) > 1% indicates that a LEFT SHIFT is Present. Performed By: #### L 500.4050, L500.4100, L100.0100 ####[facility] [address] [place], [address] Lymphocytes/100 WBC (Bld) 24.9 % Normal 19-41 [facility] Comment on above: Performed By: #### L 500.4050, L500.4100, L100.0100 ####[facility] [address] [place], [address] MCH (RBC) [Entitic mass] 28.0 pg Normal 27.0-32.0 [facility] Comment on above: Performed By: #### L 500.4050, L500.4100, L100.0100 ####[facility] [address] [place], [address] MCHC (RBC) [Mass/Vol] 33.0 g/dL Normal 32-36 [facility] Comment on above: Performed By: #### L 500.4050, L500.4100, L100.0100 ####[facility] [address] [place], [address] MCV (RBC) [Entitic vol] 84.6 fL Normal 81-99 [facility] Comment on above: Performed By: #### L 500.4050, L500.4100, L100.0100 ####[facility] [address] [place], [address] Monocytes/100 WBC (Bld) 5.0 % Normal 0-10 [facility] Comment on above: Performed By: #### L 500.4050, L500.4100, L100.0100 ####[facility] [address] [place], [address] Neutrophils/100 WBC (Bld) 67.0 % Normal 47-70 [facility] Comment on above: Performed By: #### L 500.4050, L500.4100, L100.0100 ####[facility] [address] [place], [address] Nucleated RBC (Bld) [#/Vol] 0 10*3/uL Normal 0-5 [facility] Comment on above: Performed By: #### L 500.4050, L500.4100, L100.0100 ####[facility] [address] [place], [address] Platelet mean volume (Bld) [Entitic vol] 10.2 fL Normal 6.2-12.0 [facility] Comment on above: Performed By: #### L 500.4050, L500.4100, L100.0100 ####[facility] [address] [place], [address] Platelets (Bld) [#/Vol] 299 10*3/uL Normal 150-450 [facility] Comment on above: Performed By: #### L 500.4050, L500.4100, L100.0100 ####[facility] [address] [place], [address] RBC (Bld) [#/Vol] 5.40 10*6/uL Normal 4.2-5.4 [facility] Comment on above: Performed By: #### L 500.4050, L500.4100, L100.0100 ####[facility] [address] [place], [address] RDW SD 38.0 fl Normal 35.1-43.9 [facility] Comment on above: Performed By: #### L 500.4050, L500.4100, L100.0100 ####[facility] [address] [place], [address] WBC (Bld) [#/Vol] 9.6 10*3/uL Normal 4.4-11.0 [facility] Comment on above: Performed By: #### L 500.4050, L500.4100, L100.0100 ####[facility] [address] [place], [address] Comprehensive Metabolic Prof ilon 07-22-2024 Albumin [Mass/Vol] 4.2 g/dL Normal 3.2-5.0 [facility] Comment on above: Performed By: #### L 500.4050, L500.4100, L100.0100 ####[facility] [address] [place], [address] Albumin/Globulin [Mass ratio] 1.2 {ratio} Normal 0.9-2.4 [facility] Comment on above: Performed By: #### L 500.4050, L500.4100, L100.0100 ####[facility] [address] [place], [address] ALK P 67 U/L Normal 45-117 [facility] Comment on above: Performed By: #### L 500.4050, L500.4100, L100.0100 ####[facility] [address] [place], [address] ALT [Catalytic activity/Vol] 63 U/L High 13-56 [facility] Comment on above: Performed By: #### L 500.4050, L500.4100, L100.0100 ####[facility] [address] [place], [address] AST [Catalytic activity/Vol] 25 U/L Normal 15-37 [facility] Comment on above: Performed By: #### L 500.4050, L500.4100, L100.0100 ####[facility] [address] [place], [address] Bilirubin [Mass/Vol] 0.70 mg/dL Normal 0.20-1.00 [facility] Comment on above: Result Comment: For patients on eltrombopag therapy, use of Dimension Clark TBIL is not recommended. Performed By: #### L 500.4050, L500.4100, L100.0100 ####[facility] [address] [place], [address] BUN/CRE 20.6 RATIO High 10-20 [facility] Comment on above: Performed By: #### L 500.4050, L500.4100, L100.0100 ####[facility] [address] [place], [address] CA,Total 9.3 mg/dL Normal 8.5-10.1 [facility] Comment on above: Performed By: #### L 500.4050, L500.4100, L100.0100 ####[facility] [address] [place], [address] Chloride [Moles/Vol] 103 mmol/L Normal 98-107 [facility] Comment on above: Performed By: #### L 500.4050, L500.4100, L100.0100 ####[facility] [address] [place], [address] CO2 [Moles/Vol] 28.0 mmol/L Normal 21.0-32.0 [facility] Comment on above: Performed By: #### L 500.4050, L500.4100, L100.0100 ####[facility] [address] [place], [address] Creatinine [Mass/Vol] 0.73 mg/dL Normal 0.55-1.02 [facility] Comment on above: Result Comment: The validity of the calculated GFR GFRAA in patients over 70 years has not been determined. Clinical correlation is essential. Performed By: #### L 500.4050, L500.4100, L100.0100 ####[facility] [address] [place], [address] EST GFR - AA 114 mL/min Normal >60 [facility] Comment on above: Result Comment: Afri can Azerbaijani GFR Calc Performed By: #### L 500.4050, L500.4100, L100.0100 ####[facility] [address] [place], [address] GAP 6 Normal 5-15 [facility] Comment on above: Performed By: #### L 500.4050, L500.4100, L100.0100 ####[facility] [address] [place], [address] GFR/1.73 sq M.predicted among non-blacks MDRD (S/P/Bld) [Vol rate/Area] 94 mL/min/{1.73_m2} Normal >60 [facility] Comment on above: Result Comment: Non- GFR Calc Performed By: #### L 500.4050, L500.4100, L100.0100 ####[facility] [address] [place], [address] Globulin (S) [Mass/Vol] 3.5 g/dL Normal 2.2-4.2 [facility] Comment on above: Performed By: #### L 500.4050, L500.4100, L100.0100 ####[facility] [address] [place], [address] Glucose [Mass/Vol] 131 mg/dL High 74-106 [facility] Comment on above: Result Comment: Fast ing Glucose result greater than or equal to 126 mg/dL suggests DIABETES MELLITUS per A.D.A. criteria. Performed By: #### L 500.4050, L500.4100, L100.0100 ####[facility] [address] [place], [address] Potassium [Moles/Vol] 4.0 mmol/L Normal 3.5-5.1 [facility] Comment on above: Performed By: #### L 500.4050, L500.4100, L100.0100 ####[facility] [address] [place], [address] Sodium [Moles/Vol] 137 mmol/L Normal 136-145 [facility] Comment on above: Performed By: #### L 500.4050, L500.4100, L100.0100 ####[facility] [address] [place], [address] T PROT 7.7 g/dL Normal 6.4-8.2 [facility] Comment on above: Performed By: #### L 500.4050, L500.4100, L100.0100 ####[facility] [address] [place], [address] Urea nitrogen [Mass/Vol] 15 mg/dL Normal 7-18 [facility] Comment on above: Performed By: #### L 500.4050, L500.4100, L100.0100 ####[facility] [address] [place], [address] Lipid Profileon 07-22-2024 Cholesterol [Mass/Vol] 157 mg/dL Normal 200 [facility] Comment on above: Result Comment: <200 mg/dL Desirable 200-240 mg/dL Borderline >240 mg/dL High Risk Performed By: #### L 500.4050, L500.4100, L100.0100 ####[facility] [address] [place], [address] Cholesterol in HDL [Mass/Vol] 35 mg/dL Low [facility] Comment on above: Result Comment: The drugs N-Acetylcysteine and Metamizole may falsely depress this assay. Reference Range HDL <40 mg/dL Low HDL Cholesterol HDL >or= 60 mg/dL High HDL Cholesterol Performed By: #### L 500.4050, L500.4100, L100.0100 ####[facility] [address] [place], [address] Cholesterol in LDL [Mass/Vol] 53 mg/dL Normal 0-130 [facility] Comment on above: Performed By: #### L 500.4050, L500.4100, L100.0100 ####[facility] [address] [place], [address] Cholesterol in VLDL [Mass/Vol] 69 mg/dL High 5-40 [facility] Comment on above: Performed By: #### L 500.4050, L500.4100, L100.0100 ####[facility] [address] [place], [address] Triglyceride [Mass/Vol] 347 mg/dL High [facility] Comment on above: Result Comment: The drugs N-Acetylcysteine and Metamizole may falsely depress this assay. Serum Triglycerides Reference Interval Normal <150 mg/dL Borderline high 150 - 199 mg/dL High 200 - 499 mg/dL Very High > or = 500 mg/dL Performed By: #### L 500.4050, L500.4100, L100.0100 ####[facility] [address] [place], [address] Internal Medicine Office Vis shane 07-21-2024 Internal Medicine Office Visit [facility] [address] [place] [address] [place] [address] OFFICE VISIT Date of Service: 07/22/24 MR#: [id number] Acct: [id number] Name: SOSA VALLEJO Rep #: [id number] : [id number] Provider: Dr. Christine jackson MD Age/Sex: 38/F Location: [facility] Status: Signed Intake Vital Signs 12/31/23 14:57 07/22/24 07:34 Height 5 ft 6 in 5 ft 6 in Weight: 175 lb BMI 28.2 BP 134/84 H Blood Pressure Location Lt brachial Position Sitting Respiration 16 Pulse 84 Pulse Source Monitor Temp 99.2 F H Temp Source Temporal Pulse Oximetry (%) 98 Oxygen Delivery Method room air Intake Visit Reasons: MED FU Channeler Insole Required: No Is patient in pain?: No Allergies lisinopril Adverse Reaction (Unknown, Verified 07/22/24 07:25) cough Medications ???Medication ???Instructions ???Recorded ???Confirmed ???Type ibuprofen 800 mg tablet 800 mg PO TID PRN pain #60 tabs 03/17/22 07/22/24 Rx famotidine 20 mg tablet 20 mg PO DAILY 11/19/23 07/22/24 History meloxicam 15 mg tablet 15 mg PO DAILY 11/19/23 07/22/24 History rosuvastatin 5 mg tablet 5 mg PO QHS #90 tabs 03/31/24 07/22/24 Rx cetirizine 10 mg tablet (Allergy 10 mg PO DAILY #90 TABLETS 06/12/24 07/22/24 Rx Relief (cetirizine)) losartan 50 mg tablet 50 mg PO DAILY #90 TABLETS 07/22/24 07/22/24 Rx metformin 500 mg tablet 500 mg PO DAILY #30 TABLETS 07/22/24 07/22/24 Rx montelukast 10 mg tablet 10 mg PO QHS #90 TABLETS 07/22/24 07/22/24 Rx Nurse's Note: Declines flu shot PFSH Medical History Depression High cholesterol Vitamin deficiency Hormone deficiency Arthritis Seasonal allergies Diabetes mellitus Hypertension Surgical History History of removal of ovarian cyst Family History Mother Breast cancer 50s Arthritis Paranoid schizophrenia Grandfather Myocardial infarction Hypertension Heart disease Arthritis Grandmother Hypertension Osteopenia Arthritis Father Hypertension DVT (deep venous thrombosis) Arthritis Social History (Updated 07/22/24 @ 07:[address] Christine Christopher MD) household members: spouse current occupational status: employed current occupation: warehouse work Smoking Status: Never smoker Electronic Cigarette Use: not used alcohol intake: current alcohol intake frequency: holidays/special occasions only substance use type: does not use seatbelt use: always do you feel safe at home: Yes HPI HPI Details: SOSA VALLEJO, is a 38 F who presents to the office today for a follow up. She is due for some routine blood work. She is up to date on her screening. She doesn't want a flu shot. She doesn't smoke and does need refills. She reports she is trying to eat healthy and staying active. She reports her leg swelling has been good. She reports she hasn't had any problems since getting back on the metformin. She reports her mental health has been doing well. She is not currently taking any medications. She denies any current concerns about depression or anxiety nor any thoughts of suicide. She doesn't check her sugars at home stating she doesn't have a meter. She would check, if she had one, however. Since she was last seen, her metformin was restarted due to PCOS symptoms. She reports that she is taking it as prescribed without problems. She does try to monitor her carbohydrate and sugar intake. She is up to date on her diabetic eye exam and doesn't see podiatry. She doesn't check her blood pressure at home. She is taking her medication as prescribed without problems. She does monitor her salt intake. She continues to feel the meloxicam is helping with her joint pain. She denies any pain currently. At her last office visit, she was started on singulair for allergy symptoms. She reports that it has helped. She denies any ongoing allergy symptoms. She hasn't noticed any problems with the medication. She has no questions or concerns at this time. ROS Const Constitutional: Positive for headache(s) (occasional); No body ache, chills, excessive sweating, fatigue, fever(s), frequent falls, snoring, weakness, weight change, sleep problems or change in appetite Eyes Eyes: No blurry vision, change in vision, eye pain or Light sensitivity ENT ENT: Positive for headache(s) (occasional); No abnormal hearing, ear or mastoid pain, tinnitus, nasal congestion, neck pain or sore throat Resp Respiratory: Positive for cough (intermittent); No shortness of breath, snoring or wheezing Cardio Cardiology: No chest pain at rest, chest pain with exertion, excessive sweating, shortness of breath, dyspnea on exertion, lightheadedness, orthopnea, palpi (more content not included)... Normal [facility] Basophil percentageOrdered B y: Vianca Escobarniki on 12-20-2023 Bilirubin [Mass/Vol] 0.50 mg/dL 0.20-1.00 [facility] Comment on above: For patients on eltr ombopag therapy, use of Dimension Clark TBIL is not recommended. Chloride [Moles/Vol] 104 mmol/L 98-107 [facility] Glucose [Mass/Vol] 119 mg/dL 74-106 [facility] Comment on above: Fasting Glucose resu lt from 100 to 125 mg/dL suggests IMPAIRED HOMEOSTASIS per A.D.A. criteria. Potassium [Moles/Vol] 3.6 mmol/L 3.5-5.1 [facility] Protein [Mass/Vol] 7.2 g/dL 6.4-8.2 [facility] Sodium [Moles/Vol] 138 mmol/L 136-145 [facility] Laboratory - Chemistry and C hemistry - challengeOrdered By: Vianca Figueroa on 12-20-2023 Albumin/Globulin [Mass ratio] 1.2 {ratio} 0.9-2.4 [facility] ALP [Catalytic activity/Vol] 50 U/L 45-117 [facility] ALT [Catalytic activity/Vol] 38 U/L 13-56 [facility] CO2 [Moles/Vol] 29.0 mmol/L 21.0-32.0 [facility] Globulin (S) [Mass/Vol] 3.2 g/dL 2.2-4.2 [facility] Natriuretic peptide B (Bld) [Mass/Vol] 19.2 pg/mL 0-100 [facility] Urea nitrogen/Creatinine [Mass ratio] 12.6 mg/mg 10-20 [facility] No Panel InformationOrdered By: Vianca Figueroa on 12-20-2023 D-Dimer Quantitative (PE/DVT) < 0.27 FEU/ug/m 0.27-0.49 [facility] Comment on above: NORMAL D-Dimer level (<0.50) indicates no DVT or PE. Estimated GFR (MDRD) Amer 117 mL/min >60 [facility] Comment on above: GFR Calc Estimated GFR (MDRD) Non-Af Amer 96 mL/min >60 [facility] Comment on above: Non- GFR Calc Serum or plasma calcium roselia urement (mass/volume)Ordered By: Vianca Figueroa on 12-20-2023 Calcium [Mass/Vol] 8.9 mg/dL 8.5-10.1 [facility] Serum or plasma creatinine m easurement (mass/volume)Ordered By: Vianca Figueroa on 12-20-2023 Creatinine [Mass/Vol] 0.72 mg/dL 0.55-1.02 [facility] Comment on above: The validity of the calculated GFR & GFRAA in patients over 70 years has not been determined. Clinical correlation is essential. Serum or plasma thyroid stim ulating hormone (TSH) measurement (units/volume)Ordered By: Vianca Figueroa on 12-20-2023 TSH Qn 1.35 uIU/mL 0.358-3.74 [facility] Serum or plasma urea nitroge n measurement (mass/volume)Ordered By: Vianca Figueroa on 12-20-2023 Urea nitrogen [Mass/Vol] 9 mg/dL 7-18 [facility] Thin prep Papanicolaou smear with manual screeningOrdered By: Vianca Figueroa on 12-20-2023 Protein (U) [Mass/Vol] 9.9 mg/dL 0.0-11.8 [facility] Thin prep Papanicolaou smear with manual screening 4.0 g/dL 3.2-5.0 [facility] Thin prep Papanicolaou smear with manual screening 22 U/L 15-37 [facility] Thin prep Papanicolaou smear with manual screening 5 5-15 [facility] Urine creatinine measurement (mass/volume)Ordered By: Vianca Figueroa on 12-20-2023 Creatinine (U) [Mass/Vol] 111.00 mg/dL NO RANGE EST. [facility] Urine protein/creatinine mas s ratioOrdered By: iVanca Figueroa on 12-20-2023 Protein/Creatinine (U) [Mass ratio] 89 mg/g CRE 0-200 [facility] Laboratory - Hematology and Cell countson 11-19-2023 HbA1c (Bld) [Mass fraction] 5.7 % 4.2-6.3 [facility] Laboratory - Microbiology an d Antimicrobial susceptibilityOrdered By: Ashleigh Rodriguez on 11-19-2023 SARS-CoV-2 (COVID-19) RNA TWIN+probe Ql (Unsp spec) [facility] Cervical or vaginal specimen microscopic examination by liquid based cytology (reportOrdered By: Ashley Robertson on 10-12-2023 Cytology report Cyto stain.thin prep Doc (Cvx/Vag) Comment . [facility] Comment on above: Criteria not met, HP V Genotype not performed.Performed at: [facility] [id number] [id number] Director: Jesús Gil MD, Phone: [phone] at: [address] [id number] Director: Lizzeth Hernández MD, Phone: [phone] at: [address] [id number] Director: Lizzeth Hernández MD, Phone: [phone] Cervical or vagninal specime n microscopic examination by cytology stain (reported asOrdered By: Ashley Robertson on 10-12-2023 Cytology report Cyto stain Doc (Cvx/Vag) Comment . [facility] Comment on above: The Pap smear is a s creening test designed to aid in thedetection of premalignant and malignant conditions of theuterine cervix. It is not a diagnostic procedure andshould not be used as the sole means of detecting cervicalcancer. Both false-positive and false-negative reports dooccur. Detection in cervical specim en of any of human papilloma virus (HPV) 16, 18, 31, 33,Ordered By: Ashley Robertson on 10-12-2023 HPV 16+18+31+33+35+39+45+51+5 2+56+58+59+66+68 DNA Probe+sig amp Ql (Cvx) Negative Negative [facility] Comment on above: This nucleic acid am plification test detects fourteen high-risk HPV types (16,18,31,33,35,39,45,51,52,56,58,59,66,68)without differentiation. Laboratory - CytologyOrdered By: Ashley Robertson on 10-12-2023 [employer] Machine Operator Cyto stain Nom (Cvx/Vag) [ID] Comment . [facility] Comment on above: Sofiya Steele Cytote chnologist (ASCP) Laboratory - Miscellaneous t estsOrdered By: Ashley Robertson on 10-12-2023 Service comment (Unsp spec) [Interp] . . [facility] Thin prep Papanicolaou smear with manual screeningOrdered By: Ashley Robertson on 10-12-2023 Thin prep Papanicolaou smear with manual screening Comment . [facility] Comment on above: NEGATIVE FOR INTRAEP ITHELIAL LESION OR MALIGNANCY. This liquid based Th inPrep(R) pap test was screened withthe use of an image guided system. Laboratory - Hematology and Cell countson 08-28-2023 HbA1c (Bld) [Mass fraction] 5.6 % 4.2-6.3 [facility] Basophil percentageon 2021 Bilirubin [Mass/Vol] 1.10 mg/dL 0.20-1.00 [facility] Work Phone: Comment on above: For patients on eltr ombopag therapy, use of Dimension Clark TBIL is not recommended. Chloride [Moles/Vol] 107 mmol/L 98-107 [facility] Work Phone: Cholesterol [Mass/Vol] 171 mg/dL <200 [facility] Work Phone: Comment on above: <200 mg/dL Desirable 200-240 mg/dL Borderline >240 mg/dL High Risk Glucose [Mass/Vol] 102 mg/dL 74-106 [facility] Work Phone: Comment on above: Fasting Glucose resu lt from 100 to 125 mg/dL suggests IMPAIRED HOMEOSTASIS per A.D.A. criteria. Potassium [Moles/Vol] 3.4 mmol/L 3.5-5.1 [facility] Work Phone: Protein [Mass/Vol] 7.6 g/dL 6.4-8.2 [facility] Work Phone: Sodium [Moles/Vol] 139 mmol/L 136-145 [facility] Work Phone: Triglyceride [Mass/Vol] 163 mg/dL <199 [facility] Work Phone: Comment on above: The drugs N-Acetylcy steine and Metamizole may falsely depress this assay.Serum Triglycerides Reference Interval Normal <150 mg/dL Borderline high 150 - 199 mg/dL High 200 - 499 mg/dL Very High > or = 500 mg/dL Laboratory - Chemistry and C hemistry - challengeon 07-21-2022 ALP [Catalytic activity/Vol] 41 U/L 45-117 [facility] Work Phone: [phone] ALT [Catalytic activity/Vol] 26 U/L 13-56 [facility] Work Phone: [phone] CO2 [Moles/Vol] 27.0 mmol/L 21.0-32.0 [facility] Work Phone: [phone] Globulin (S) [Mass/Vol] 3.4 g/dL 2.2-4.2 [facility] Work Phone: [phone] Urea nitrogen/Creatinine [Mass ratio] 14.5 mg/mg 10-20 [facility] Work Phone: No Panel Informationon 07-21 Estimated GFR (MDRD) Amer 110 mL/min >60 [facility] Work Phone: Comment on above: GFR Calc Estimated GFR (MDRD) Non-Af Amer 91 mL/min >60 [facility] Work Phone: Comment on above: Non- GFR Calc Serum or plasma albumin roselia urement (mass/volume)on 07-21-2022 Albumin [Mass/Vol] 4.2 g/dL 3.2-5.0 [facility] Work Phone: [phone] Serum or plasma albumin/glob ulin mass ratioon 07-21-2022 Albumin/Globulin [Mass ratio] 1.2 {ratio} 0.9-2.4 [facility] Work Phone: [phone] Serum or plasma calcium roselia urement (mass/volume)on 07-21-2022 Calcium [Mass/Vol] 9.0 mg/dL 8.5-10.1 [facility] Work Phone: Serum or plasma cholesterol in HDL measurement (mass/volume)on 07-21-2022 Cholesterol in HDL [Mass/Vol] 51 mg/dL >40 [facility] Work Phone: Comment on above: The drugs N-Acetylcy steine and Metamizole may falsely depress this assay. Reference Range HDL <40 mg/dL Low HDL Cholesterol HDL >or= 60 mg/dL High HDL Cholesterol Serum or plasma cholesterol in VLDL measurement (mass/volume)on 07-21-2022 Cholesterol in VLDL [Mass/Vol] 33 mg/dL 5-40 [facility] Work Phone: Serum or plasma creatinine m easurement (mass/volume)on 07-21-2022 Creatinine [Mass/Vol] 0.76 mg/dL 0.55-1.02 [facility] Work Phone: Comment on above: The validity of the calculated GFR & GFRAA in patients over 70 years has not been determined. Clinical correlation is essential. Serum or plasma low density lipoprotein (LDL) cholesterol measurement (mass/volume)on 07-21-2022 Cholesterol in LDL [Mass/Vol] 87 mg/dL 0-130 [facility] Work Phone: Serum or plasma urea nitroge n measurement (mass/volume)on 07-21-2022 Urea nitrogen [Mass/Vol] 11 mg/dL 7-18 [facility] Work Phone: Thin prep Papanicolaou smear with manual screeningon 07-21-2022 Thin prep Papanicolaou smear with manual screening 11 U/L 15-37 [facility] Work Phone: Thin prep Papanicolaou smear with manual screening 5 5-15 [facility] Work Phone: Whole blood hemoglobin A1c/t otal hemoglobin ratio (mass fraction)on 07-21-2022 HbA1c (Bld) [Mass fraction] 5.5 % 3.8-5.6 [facility] Work Phone: Comment on above: Normal < 5.7 % Predi abetic 5.7 - 6.4 % Diabetic >or= 6.5 % Please note range changes. Laboratory - Chemistry and C hemistry - challengeon 04-21-2022 Free T4 [Mass/Vol] 1.02 ng/dL 0.76-1.46 [facility] Work Phone: No Panel Informationon 04-21 Thyroid Stimulating Hormone (TSH) 1.05 uIU/mL 0.358-3.74 [facility] Work Phone: Vital Signs Date Time Vital Sign Value Performing Clinician Faci lity 12-20-2023 15:28-0400 Body height 167.[address] Christine Christopher Work Phone: [facility] 12-20-2023 15:28-0400 Body mass index (BMI) [Ratio] 28.8 kg/m2 Dr. Christine Christopher Work Phone: [facility] 12-20-2023 15:28-0400 Body temperature 98.5 [degF] Dr. Christine Christopher Work Phone: [facility] 12-20-2023 15:28-0400 Body weight 80.[address] Christine Christopher Work Phone: [facility] 12-20-2023 15:28-0400 Diastolic blood pressure 70 mm[Hg] Dr. Christine Christopher Work Phone: [facility] 12-20-2023 15:28-0400 Heart rate 103 /min Dr. Christine Christopher Work Phone: [facility] 12-20-2023 15:28-0400 Respiratory rate 16 /min Dr. Christine Christopher Work Phone: [facility] 12-20-2023 15:28-0400 SaO2% (BldA) [Mass fraction] 98 % Dr. Christine Christopher Work Phone: [facility] 12-20-2023 15:28-0400 Systolic blood pressure 120 mm[Hg] Dr. Christine Christopher Work Phone: [facility] 11-30-2023 11:39-0400 Body temperature 98.2 [degF] Dr. Christine Christopher Work Phone: [facility] 11-30-2023 11:39-0400 Diastolic blood pressure 84 mm[Hg] Dr. Christine Christopher Work Phone: [facility] 11-30-2023 11:39-0400 Heart rate 94 /min Dr. Christine Christopher Work Phone: [facility] 11-30-2023 11:39-0400 SaO2% (BldA) [Mass fraction] 99 % Dr. Christine Christopher Work Phone: [facility] 11-30-2023 11:39-0400 Systolic blood pressure 132 mm[Hg] Dr. Christine Christopher Work Phone: [facility] 11-19-2023 09:37-0400 Body mass index (BMI) [Ratio] 27.9 kg/m2 Dr. Christine Christopher Work Phone: [facility] 11-19-2023 09:37-0400 Body temperature 99 [degF] Dr. Christine Christopher Work Phone: [facility] 11-19-2023 09:37-0400 Body weight 78.[address] Christine Christopher Work Phone: [facility] 11-19-2023 09:37-0400 Diastolic blood pressure 94 mm[Hg] Dr. Christine Christopher Work Phone: [facility] 11-19-2023 09:37-0400 Heart rate 91 /min Dr. Christine Christopher Work Phone: [facility] 11-19-2023 09:37-0400 Respiratory rate 18 /min Dr. Christine Christopher Work Phone: [facility] 11-19-2023 09:37-0400 SaO2% (BldA) [Mass fraction] 98 % Dr. Christine Christopher Work Phone: [facility] 11-19-2023 09:37-0400 Systolic blood pressure 140 mm[Hg] Dr. Christine Christopher Work Phone: [facility] 11-19-2023 09:03-0400 Body temperature 97.8 [degF] Dr. Christine Christopher Work Phone: [facility] 11-19-2023 09:03-0400 Diastolic blood pressure 91 mm[Hg] Dr. Christine Christopher Work Phone: [facility] 11-19-2023 09:03-0400 Heart rate 89 /min Dr. Christine Christopher Work Phone: [facility] 11-19-2023 09:03-0400 Respiratory rate 18 /min Dr. Christine Christopher Work Phone: [facility] 11-19-2023 09:03-0400 SaO2% (BldA) [Mass fraction] 99 % Dr. Christien Christopher Work Phone: [facility] 11-19-2023 09:03-0400 Systolic blood pressure 154 mm[Hg] Dr. Christine Christopher Work Phone: [facility] 11-19-2023 06:51-0400 Body height 167.[address] Christine Christopher Work Phone: [facility] 11-19-2023 06:51-0400 Body mass index (BMI) [Ratio] 27.2 kg/m2 Dr. Christine Christopher Work Phone: [facility] 11-19-2023 06:51-0400 Body weight 76.[address] Christine Christopher Work Phone: [facility] 10-12-2023 16:00-0500 Body height 167.[address] Christine Christopher Work Phone: [facility] 10-12-2023 16:00-0500 Body mass index (BMI) [Ratio] 27.6 kg/m2 Dr. Christine Christopher Work Phone: [facility] 10-12-2023 16:00-0500 Body weight 77.[address] Christine Christopher Work Phone: [facility] 10-12-2023 16:00-0500 Diastolic blood pressure 82 mm[Hg] Dr. Christine Christopher Work Phone: [facility] 10-12-2023 16:00-0500 Systolic blood pressure 126 mm[Hg] Dr. Christine Christopher Work Phone: [facility] 08-28-2023 15:18-0500 Body mass index (BMI) [Ratio] 26.6 kg/m2 Dr. Christine Christopher Work Phone: [facility] 08-28-2023 15:18-0500 Body temperature 98.3 [degF] Dr. Christine Christopher Work Phone: [facility] 08-28-2023 15:18-0500 Body weight 75.[address] Christine Christopher Work Phone: [facility] 08-28-2023 15:18-0500 Diastolic blood pressure 82 mm[Hg] Dr. Christine Christopher Work Phone: [facility] 08-28-2023 15:18-0500 Heart rate 90 /min Dr. Christine Christopher Work Phone: [facility] 08-28-2023 15:18-0500 Respiratory rate 16 /min Dr. Christine Christopher Work Phone: [facility] 08-28-2023 15:18-0500 SaO2% (BldA) [Mass fraction] 98 % Dr. Christine Christopher Work Phone: [facility] 08-28-2023 15:18-0500 Systolic blood pressure 118 mm[Hg] Dr. Christine Christopher Work Phone: [facility] 03-17-2022 08:29-0400 Body height 167.64 cm CHARGE AUDITOR-C Fide Lyons Work Phone: [facility] Work Phone: 03-17-2022 08:29-0400 Body mass index (BMI) [Ratio] 26.6 kg/m2 CHARGE AUDITOR-C Fide Lyons Work Phone: [facility] Work Phone: 03-17-2022 08:29-0400 Body weight 74.84 kg CHARGE AUDITOR-C Fide Lyons Work Phone: [facility] Work Phone: 09-14-2021 06:51-0500 Body height 167.64 cm CHARGE AUDITOR-C Fide Lyons Work Phone: [facility] Work Phone: 09-14-2021 06:51-0500 Body mass index (BMI) [Ratio] 26.6 kg/m2 CHARGE AUDITOR-C Fide Lyons Work Phone: [facility] Work Phone: 09-14-2021 06:51-0500 Body temperature 98.6 [degF] CHARGE AUDITOR-C Fide Lyons Work Phone: [facility] Work Phone: 09-14-2021 06:51-0500 Body weight 74.84 kg CHARGE AUDITOR-C Fide Lyons Work Phone: [facility] Work Phone: 09-14-2021 06:51-0500 Diastolic blood pressure 82 mm[Hg] CHARGE AUDITOR-C Fide Lyons Work Phone: [facility] Work Phone: 09-14-2021 06:51-0500 Heart rate 113 /min CHARGE AUDITOR-C Fide Lyons Work Phone: [facility] Work Phone: 09-14-2021 06:51-0500 Respiratory rate 16 /min CHARGE AUDITOR-C Fide Apodacas Work Phone: [facility] Work Phone: 09-14-2021 06:51-0500 SaO2% (BldA) [Mass fraction] 99 % CHARGE AUDITOR-C Fide Crary Work Phone: [facility] Work Phone: 09-14-2021 06:51-0500 Systolic blood pressure 126 mm[Hg] CHARGE AUDITOR-C [facility] Work Phone: [facility] Work Phone: Encounters Encounter Date Encounter Type Care Provider Facility Start: 04-11-2025 ambulatory [facility] Facility :[facility] Start: 04-06-2025 ambulatory [facility] Facility :[facility] Start: 09-17-2024 End: 09-17-2024 ambulatory Tre CESPEDES Facility:[facility] Start: 08-08-2024 End: 08-08-2024 ambulatory Don CESPEDES Facility:[facility] Start: 07-22-2024 End: 07-22-2024 ambulatory Christine Christopher Facility:[facility] Start: 07-22-2024 End: 07-22-2024 ambulatory Christine Christopher Facility:[facility] Start: 12-20-2023 End: 12-20-[address] Christine Christopher Work Phone: [facility] Work Phone: Start: 12-20-2023 End: 12-20-[address] Christine Christopher Work Phone: [facility] Work Phone: Start: 11-30-2023 End: 11-30-[address] Christine Christopher Work Phone: [facility] Work Phone: Start: 11-19-2023 End: 11-19-[address] Christine Christopher Work Phone: [facility] Work Phone: Start: 11-19-2023 End: 11-19-2023 [facility] Start: 10-12-2023 End: 10-12-[address] Christine Christopher Work Phone: [facility] Work Phone: Start: 10-12-2023 End: 10-12-[address] [facility] Work [facility]: Start: 10-12-2023 End: 10-12-[address] Christine Christopher Work Phone: [facility] Work Phone: Start: 08-28-2023 End: 08-28-[address] Christine Christopher Work Phone: [facility] Work Phone: Start: 07-21-2022 End: 07-21-2022 ambulatory [facility] Work Phone: Start: 07-21-2022 End: 07-21-2022 [facility] Start: 04-21-2022 End: 04-21-2022 ambulatory CHARGE AUDITOR-C Fide Lyons Work Phone: [facility] Work Phone: Start: 04-21-2022 End: 04-21-2022 Patient encounter procedure CHARGE AUDITOR-C Fide Lyons Work Phone: [facility]-Laboratory, [place] [employer] Start: 03-17-2022 End: 03-17-2022 Patient encounter procedure CHARGE AUDITOR-C Fide Paulinolins Work Phone: [facility] Start: 11-23-2021 Non-patient / Non-visit CHARGE AUDITOR-C Michelle Lyons Work Phone: [facility] Start: 11-22-2021 End: 11-22-2021 Patient encounter procedure CHARGE AUDITOR-C Fide Paulinolins Work Phone: [facility]-Pulmonary Services/Neurology Start: 11-10-2021 End: 11-10-2021 Patient encounter procedure CHARGE AUDITOR-C Fide Paulinolins Work Phone: [facility]-Radiology, [facility] Start: 09-14-2021 End: 09-14-2021 Patient encounter procedure CHARGE AUDITOR-C Fide Paulinolins Work Phone: [facility] Procedures Date Procedure Procedure Detail Performing Clinician Start: 11-19-2023 SARS-CoV-2, Influenz a & RSV (PCR) Dr. Christine Christopher Work Phone: Start: 03-17-2022 Plain x-ray of pelvi s and lower extremity CHARGE AUDITOR-C Fide Paulinolins Work Phone: Start: 11-10-2021 Plain chest X-ray CHARGE AUDITOR-C Fide Paulinolins Work Phone: Plan of Treatment Date Care Activity Detail Author Start: 11-19-2023 [facility] Start: 10-12-2023 Liquid based cervica l cytology screening [facility] Path report.final Dx Spec [facility] Patient Education ED Sinusitis (Antibiotic Treatment) [facility] Work Phone: Patient referral [facility] Work Phone: [facility] Payers Date Payer Category Payer Self-pay 2024 Private Health Insurance [id number] Self-pay SELF PAY INSURANCE [id number] Unknown [id number] Unknown [facility] [id number] Unknown [id number] Unknown [id number] Unknown [id number] Unknown [id number] Unknown [id number] Unknown [id number] Social History Date Type Detail Facility Start: 11-29-2020 End: 11-30-2023 Tobacco smoking status NHIS Unknown if ever smoked [facility] Start: 1985 Sex Assigned At Female [facility] Mental Status Date Assessment Result Facility 11-19-2023 Cognitive function Level Of Cons ciousness Awake;Alert;Appropriate;Follow s Commands [facility] Work Phone: Clinical Note 10-12-2023 Note Date & Type Note Facility 10-12-2023 Note [facility] Pap Smear Specimen Adequacy October 12, 2023 5:48pm Comment . Satisfactory for evaluation. Endocervical and/or squamous metaplasticcells (endocervical component) are present. Comment on above: Satisfactory for tayler luation. Endocervical and/or squamous metaplasticcells (endocervical component) are present. Clinical Note 10-12-2023 Note Date & Type Note Facility 10-12-2023 Note [facility] Pap Smear Specimen Adequacy October 12, 2023 5:48pm Comment . Satisfactory for evaluation. Endocervical and/or squamous metaplasticcells (endocervical component) are present. Comment on above: Satisfactory for tayler luation. Endocervical and/or squamous metaplasticcells (endocervical component) are present. Evaluation note Note Date & Type Note Facility Evaluation note Diagnosis Onset Date Acute frontal sinusitis, unspecified acute [facility] Work Phone: Evaluation note Note Date & Type Note Facility Evaluation note Diagnosis Onset Date Bone island of right femur n oneactive Piriformis syndrome of right side noneactive Greater trochanteric bursitis of right hip noneactive Pain of right sacroiliac joint noneactive [facility] Work Phone: Evaluation note Note Date & Type Note Facility Evaluation note No assessment information availa ble [facility] Work Phone: Evaluation note Note Date & Type Note Facility Evaluation note Diagnosis Onset Date Essential hypertension acute Type 2 diabetes mellitus acu te Depression with anxiety none active Chronic right hip pain nonea ctive Epigastric pain noneactive Encounter for routine gyneco logical examination noneactive [facility] Work Phone: Evaluation note Note Date & Type Note Facility Evaluation note Diagnosis Onset Date Essential hypertension acute Type 2 diabetes mellitus acu te Depression with anxiety none active Chronic right hip pain nonea ctive Epigastric pain noneactive Encounter for routine gyneco logical examination noneactive Essential hypertension acute Type 2 diabetes mellitus acu te Depression with anxiety none active Chronic right hip pain nonea ctive Epigastric pain noneactive Acute sinusitis acute Depression acute Localized swelling of both lower legs acute Weight gain acute [facility] Work Phone: Chief Complaint and Reason for Visit Chief Complaint EAR PRESSURE/COLD Reason for Visit Acute frontal sinusi tis, unspecified Chief Complaint EAR PRESSURE/COLD COUGH Cough Reason for Visit Acute frontal sinusi tis, unspecified Chief Complaint RIGHT HIP right hip x-rays Reason for Visit Bone island of right femur Piriformis syndrome of right side Greater trochanteric bursitis of right hip Pain of right sacroiliac joint Chief Complaint FOLLOW UP Annual (PHYSICIAN INDUSTRIAL) Reason for Visit Essential hypertensi on Type 2 diabetes mellitus Depression with anxiety Chronic right hip pain Epigastric pain Encounter for routine gynecological examination Chief Complaint FOLLOW UP Annual (PHYSICIAN INDUSTRIAL) headache Reason for Visit Essential hypertensi on Type 2 diabetes mellitus Depression with anxiety Chronic right hip pain Epigastric pain Encounter for routine gynecological examination Chief Complaint FOLLOW UP Annual (PHYSICIAN INDUSTRIAL) headache follow up SINUS PRESSURE, EAR PRESSURE SWELLING IN ANKLES AND LEGS Reason for Visit Essential hypertensi on Type 2 diabetes mellitus Depression with anxiety Chronic right hip pain Epigastric pain Encounter for routine gynecological examination Essential hypertension Type 2 diabetes mellitus Depression with anxiety Chronic right hip pain Epigastric pain Acute sinusitis Depression Localized swelling of both lower legs Weight gain Advance Directives No Advanced Directives Records Found Advance Directive Response Recorded Date/ Time Living Will No August 24 9 11:09am Power of Senior Fire Protection Engineer No August 24 019 11:09am Advance Directive Response Recorded Date/ Time Living Will No March 13, 2022 11:59am Power of Senior Fire Protection Engineer No March 13 2 11:59am Advance Directive Response Recorded Date/ Time Living Will No March 13, 2022 10:59am Power of Senior Fire Protection Engineer No March 13 2 10:59am Advance Directive Response Recorded Date/ Time Living Will No November 19, 2023 6:56am Power of Senior Fire Protection Engineer No November 18 4 6:56am Family History No Family History Records Found Relationship Condition Age at Onset Recorded Date/T dang Not Specified Deep vein thrombosis (DVT) Unknown Myocardial infarction Unknown Osteopenia Unknown Malignant neoplasm of breast Unknown Hypertension Unknown Relationship Condition Age at Onset Recorded Date/T dang mother Malignant neoplasm of breast Unknown Arthritis Unknown Paranoid schizophrenia Unknown grandfather Myocardial infarction Unknown Hypertension Unknown Cardiac disease Unknown grandmother Hypertension Unknown Osteopenia Unknown father Hypertension Unknown Deep vein thrombosis (DVT) Unknown Summary Purpose Additional Source Comments Goals (unrecognized section and content) Goals may be documented in a n alternate sectionGoals may be documented in an alternate sectionGoals may be documented in an alternate sectionGoals may be documented in an alternate sectionGoals may be documented in an alternate sectionGoals may be documented in an alternate sectionGoals may be documented in an alternate section Care Teams (unrecognized sec tion and content) Team Status: Active Member Role Status Dates Dr. Christine Christopher MD Primary Care Provider Active Team Status: Inactive Member Role Status Dates Dr. Christine Christopher MD Primary Care Provider, [facility] Provider Active Ashley Robertson CNM Attending Provider Active Team Status: Inactive Member Role Status Dates Dr. Christine Christopher MD Primary Care Pro vider, Attending Provider, Referring Provider Active Team Status: Inactive Member Role Status Dates Dr. Christine Christopher MD Primary Care Provider Active Ashley Robertson CNM Attending Provider Active Team Status: Inactive Member Role Status Dates Dr. Christine Christopher MD Primary Care Provider Active Dr. Ashleigh Rodriguez MD Emergency Provider Active Team Status: Inactive Member Role Status Dates Dr. Christine Christopher MD Primary Care Provider, Referri ng Provider Active RUBINA Bland Attending Provider Active Team Status: Inactive Member Role Status Dates Dr. Christine Christopher MD Primary Care Provider, Referri ng Provider Active JULIO Overton Attending Provider Active Team Status: Inactive Member Role Status Dates Dr. Christine Christopher MD Primary Care Provider Active Dr. Ashleigh Rodriguez MD Attending Provider, Emergency Provider Active Team Status: Inactive Member Role Status Dates Dr. Christine Christopher MD Primary Care Provider Active JULIO Overton Attending Provider, Referring Pro vider Active INFORMATION SOURCE (unrecogn ized section and content) DATE CREATED AUTHOR 04/13/2025 [facility] FOR RECORDS PERTAINING TO PATIENTS WHO ARE OR HAVE BEEN ENROLLED IN A CHEMICAL DEPENDENCY/SUBSTANCEABUSE PROGRAM, SOME INFORMATION MAY BE OMITTED. This clinical summary was aggregated from multiple sources. Caution should be exercised in using it in the provision of clinical care. This summary normalizes information from multiple sources, and as a consequence, information in this document may materially change the coding, format and clinical context of patient data. In addition, data may be omitted in some cases. CLINICAL DECISIONS SHOULD BE BASED ON THE PRIMARY CLINICAL RECORDS. [employer] provides no warranty or guarantee of the accuracy or completeness of information in this document.
--- OUTSIDE RECORDS SUMMARY | 2025-04-14 07:56 | XMS RPT_ITS | CCD ---
Author Organization [facility] Care Team Providers Care Emd Special Education Teacher Name Role Phone Lyons, DECK SPECIALIST-C Fide Primary Care Provider Lyons, DECK SPECIALIST-C Fide Referring Provider Celena CESPEDES, PA Tre Xie Attending Provider Bernard DECK SPECIALIST, DECK SPECIALIST-C Shaye Referring Provider Bernard DECK SPECIALIST, DECK SPECIALIST-C Shaye Other Provider Dr. Jewel Barth Attending Provider [phone] Lyons, DECK SPECIALIST-C Fide Primary Care Provider Lyons, DECK SPECIALIST-C Fide Referring Provider Olga CESPEDES, PA Gracie Attending Provider [phone] River Moore Attending Provider Dr. Christine Christopher Primary Care Provider Dr. Christine Christopher Attending Provider [phone] Dr. Christine Christopher Referring Provider [phone] PHIL Robertson Attending Provider [phone] Dr. Christine Christopher Primary Care Provider Dr. Christine Christopher Attending Provider [phone] Dr. Christine Christopher Referring Provider [phone] PHIL Robertson Attending Provider [phone] Silvio CESPEDES PA Don Attending Provider [phone] JULIO Figueroa Attending Provider [phone] Brittany Fonseca Attending Unavailable AddihofBrittany Referring Unavailable Ashwin, Christine Primary Care Unavailable Brittany Fonseca Attending Unavailable AddihoBrittany gutierrez Referring Unavailable Danforth, Christine Primary Care Unavailable Ashwin, Christine Attending Unavailable Danforth, Christine Referring Unavailable Ashwin, Christine Primary Care Unavailable Don David Attending Unavailable Danforth, Christine Referring Unavailable Ashwin, Christine Primary Care Unavailable Tre Perera Attending Unavailable Ashwin, Christine Referring Unavailable Ashwin, Christine Primary Care Unavailable Ashwin, Christine Attending Unavailable Ashwin, Christine Referring Unavailable Ashwin, Christine Primary Care Unavailable Allergies Allergy Classification Reported Allergen(s) Allergy Type Date of Onset Reaction(s) Facility (1 source) Lisinopril Drug Allergy 12-20-2023 [facility] (1 source) Lisinopril Drug Allergy 09-17-2024 [facility] Repository Medications Current Medications Medication Drug Class(es) [...] Absolute Lymph 2.37 X10 3/uL Normal 0.83-4.51 [facility] Comment on above: Performed By: #### L 500.4050, L503.6030, L501.9985, L506.1001, L506.0400, L503.0106, L501.9520, L100.0100, L500.4100, L503.6550 #### [facility] [address] [place], [place], [phone] (847) Absolute Neut 5.9 X10 3/uL Normal 2.0-7.7 [facility] Comment on above: Performed By: #### L 500.4050, L503.6030, L501.9985, L506.1001, L506.0400, L503.0106, L501.9520, L100.0100, L500.4100, L503.6550 #### [facility] [address] [place], [place], [phone] (362 Basophils/100 WBC (Bld) 0.6 % Normal 0-1 [facility] Comment on above: Performed By: #### L 500.4050, L503.6030, L501.9985, L506.1001, L506.0400, L503.0106, L501.9520, L100.0100, L500.4100, L503.6550 #### [facility] [address] [place], [place], [phone] (365 Eosinophils/100 WBC (Bld) 2.5 % Normal 0-5 [facility] Comment on above: Performed By: #### L 500.4050, L503.6030, L501.9985, L506.1001, L506.0400, L503.0106, L501.9520, L100.0100, L500.4100, L503.6550 #### [facility] [address] [place], [place], [phone] Erythrocyte distribution width (RBC) [Ratio] 12.2 % Normal 11.6-14.6 [facility] Comment on above: Performed By: #### L 500.4050, L503.6030, L501.9985, L506.1001, L506.0400, L503.0106, L501.9520, L100.0100, L500.4100, L503.6550 #### [facility] [address] [place], [address] Hematocrit (Bld) [Volume fraction] 42.6 % Normal 37-47 [facility] Comment on above: Performed By: #### L 500.4050, L503.6030, L501.9985, L506.1001, L506.0400, L503.0106, L501.9520, L100.0100, L500.4100, L503.6550 #### [facility] [address] [place], [address] Hemoglobin (Bld) [Mass/Vol] 14.7 g/dL Normal 12.0-15.0 [facility] Comment on above: Performed By: #### L 500.4050, L503.6030, L501.9985, L506.1001, L506.0400, L503.0106, L501.9520, L100.0100, L500.4100, L503.6550 #### [facility] [address] [place], [address] IG% 0.600 Normal 0.0-0.9 [facility] Comment on above: Result Comment: IG% - Immature Granulocytes (promyelocytes, myelocytes and metamyelocytes) > 1% indicates that a LEFT SHIFT is Present. Performed By: #### L 500.4050, L503.6030, L501.9985, L506.1001, L506.0400, L503.0106, L501.9520, L100.0100, L500.4100, L503.6550 #### [facility] [address] [place], [address] Lymphocytes/100 WBC (Bld) 26.2 % Normal 19-41 [facility] Comment on above: Performed By: #### L 500.4050, L503.6030, L501.9985, L506.1001, L506.0400, L503.0106, L501.9520, L100.0100, L500.4100, L503.6550 #### [facility] [address] [place], [address] MCH (RBC) [Entitic mass] 28.7 pg Normal 27.0-32.0 [facility] Comment on above: Performed By: #### L 500.4050, L503.6030, L501.9985, L506.1001, L506.0400, L503.0106, L501.9520, L100.0100, L500.4100, L503.6550 #### [facility] [address] [place], [address] MCHC (RBC) [Mass/Vol] 34.5 g/dL Normal 32-36 [facility] Comment on above: Performed By: #### L 500.4050, L503.6030, L501.9985, L506.1001, L506.0400, L503.0106, L501.9520, L100.0100, L500.4100, L503.6550 #### [facility] [address] [place], [address] MCV (RBC) [Entitic vol] 83.2 fL Normal 81-99 [facility] Comment on above: Performed By: #### L 500.4050, L503.6030, L501.9985, L506.1001, L506.0400, L503.0106, L501.9520, L100.0100, L500.4100, L503.6550 #### [facility] [address] [place], [address] Monocytes/100 WBC (Bld) 5.0 % Normal 0-10 [facility] Comment on above: Performed By: #### L 500.4050, L503.6030, L501.9985, L506.1001, L506.0400, L503.0106, L501.9520, L100.0100, L500.4100, L503.6550 #### [facility] [address] [place], [address] (385 Neutrophils/100 WBC (Bld) 65.1 % Normal 47-70 [facility] Comment on above: Performed By: #### L 500.4050, L503.6030, L501.9985, L506.1001, L506.0400, L503.0106, L501.9520, L100.0100, L500.4100, L503.6550 #### [facility] [address] [place], [place], [phone] (145 Nucleated RBC (Bld) [#/Vol] 0 10*3/uL Normal 0-5 [facility] Comment on above: Performed By: #### L 500.4050, L503.6030, L501.9985, L506.1001, L506.0400, L503.0106, L501.9520, L100.0100, L500.4100, L503.6550 #### [facility] [address] [place], [address] ( Platelet mean volume (Bld) [Entitic vol] 9.8 fL Normal 6.2-12.0 [facility] Comment on above: Performed By: #### L 500.4050, L503.6030, L501.9985, L506.1001, L506.0400, L503.0106, L501.9520, L100.0100, L500.4100, L503.6550 #### [facility] [address] [place], [address] Platelets (Bld) [#/Vol] 283 10*3/uL Normal 150-450 [facility] Comment on above: Performed By: #### L 500.4050, L503.6030, L501.9985, L506.1001, L506.0400, L503.0106, L501.9520, L100.0100, L500.4100, L503.6550 #### [facility] [address] [place], [address] RBC (Bld) [#/Vol] 5.12 10*6/uL Normal 4.2-5.[address] [facility] Comment on above: Performed By: #### L 500.4050, L503.6030, L501.9985, L506.1001, L506.0400, L503.0106, L501.9520, L100.0100, L500.4100, L503.6550 #### [facility] [address] [place], [address] RDW SD 37.1 fl Normal 35.1-43.9 [facility] Comment on above: Performed By: #### L 500.4050, L503.6030, L501.9985, L506.1001, L506.0400, L503.0106, L501.9520, L100.0100, L500.4100, L503.6550 #### [facility] [address] [place], [address] WBC (Bld) [#/Vol] 9.0 10*3/uL Normal 4.4-11.0 [facility] Comment on above: Performed By: #### L 500.4050, L503.6030, L501.9985, L506.1001, L506.0400, L503.0106, L501.9520, L100.0100, L500.4100, L503.6550 #### [facility] [address] [place], [place], [phone] Comprehensive Metabolic Prof ndon 04-11-2025 Albumin [Mass/Vol] 4.5 g/dL Normal 3.5-5.0 [facility] Comment on above: Result Comment: AMENDED REPORT 04/11/251028 ALB previously reported as: 4.4 g/dL Performed By: #### L 500.4050, L503.6030, L501.9985, L506.1001, L506.0400, L503.0106, L501.9520, L100.0100, L500.4100, L503.6550 #### [facility] [address] [place], [address] Albumin/Globulin [Mass ratio] 1.9 {ratio} Normal 0.9-2.4 [facility] Comment on above: Result Comment: AMENDED REPORT 04/11/251028 A/G previously reported as: 1.7 RATIO Performed By: #### L 500.4050, L503.6030, L501.9985, L506.1001, L506.0400, L503.0106, L501.9520, L100.0100, L500.4100, L503.6550 #### [facility] [address] [place], [place], [phone] ALK PHOS 52 U/L Normal 35-104 [facility] Comment on above: Result Comment: AMENDED REPORT 04/11/251028 ALK P previously reported as: 54 U/L Performed By: #### L 500.4050, L503.6030, L501.9985, L506.1001, L506.0400, L503.0106, L501.9520, L100.0100, L500.4100, L503.6550 #### [facility] [address] [place], [address] ALT [Catalytic activity/Vol] 29 U/L Normal <=34 [facility] Comment on above: Performed By: #### L 500.4050, L503.6030, L501.9985, L506.1001, L506.0400, L503.0106, L501.9520, L100.0100, L500.4100, L503.6550 #### [facility] [address] [place], [address] AST [Catalytic activity/Vol] 21 U/L Normal <=31 [facility] Comment on above: Performed By: #### L 500.4050, L503.6030, L501.9985, L506.1001, L506.0400, L503.0106, L501.9520, L100.0100, L500.4100, L503.6550 #### [facility] [address] [place], [address] Bilirubin [Mass/Vol] 0.61 mg/dL Normal 0.00-1.30 [facility] Comment on above: Result Comment: AMENDED REPORT 04/11/251028 T BILI previously reported as: 0.54 mg/dL Performed By: #### L 500.4050, L503.6030, L501.9985, L506.1001, L506.0400, L503.0106, L501.9520, L100.0100, L500.4100, L503.6550 #### [facility] [address] [place], [address] BUN/CRE 16.1 RATIO Normal 10-20 [facility] Comment on above: Result Comment: AMENDED REPORT 04/11/259 BUN/CRE previously reported as: 15.6 RATIO Performed By: #### L 500.4050, L503.6030, L501.9985, L506.1001, L506.0400, L503.0106, L501.9520, L100.0100, L500.4100, L503.6550 #### [facility] [address] [place], [address] Calcium [Mass/Vol] 9.1 mg/dL Normal 7.6-11.0 [facility] Comment on above: Result Comment: AMENDED REPORT 04/11/251028 CA previously reported as: 9.2 mg/dL Performed By: #### L 500.4050, L503.6030, L501.9985, L506.1001, L506.0400, L503.0106, L501.9520, L100.0100, L500.4100, L503.6550 #### [facility] [address] [place], [address] Chloride [Moles/Vol] 99 mmol/L Normal 98-108 [facility] Comment on above: Result Comment: AMENDED REPORT 04/11/25 1029 CL previously reported as: 100 mmol/L Performed By: #### L 500.4050, L503.6030, L501.9985, L506.1001, L506.0400, L503.0106, L501.9520, L100.0100, L500.4100, L503.6550 #### [facility] [address] [place], [address] CO2 [Moles/Vol] 24.6 mmol/L Normal 21.0-32.0 [facility] Comment on above: Result Comment: AMENDED REPORT 04/11/259 CO2 previously reported as: 24.0 mmol/L Performed By: #### L 500.4050, L503.6030, L501.9985, L506.1001, L506.0400, L503.0106, L501.9520, L100.0100, L500.4100, L503.6550 #### [facility] [address] [place], [address] Creatinine [Mass/Vol] 0.71 mg/dL Normal 0.70-1.20 [facility] Comment on above: Performed By: #### L 500.4050, L503.6030, L501.9985, L506.1001, L506.0400, L503.0106, L501.9520, L100.0100, L500.4100, L503.6550 #### [facility] [address] [place], [address] GAP 14 Normal 5-15 [facility] Comment on above: Result Comment: AMENDED REPORT 04/11/251028 GAP previously reported as: 14 Performed By: #### L 500.4050, L503.6030, L501.9985, L506.1001, L506.0400, L503.0106, L501.9520, L100.0100, L500.4100, L503.6550 #### [facility] [address] [place], [address] Globulin (S) [Mass/Vol] 2.4 g/dL Normal 2.2-4.2 [facility] Comment on above: Result Comment: AMENDED REPORT 04/11/251028 GLOB previously reported as: 2.6 g/dL Performed By: #### L 500.4050, L503.6030, L501.9985, L506.1001, L506.0400, L503.0106, L501.9520, L100.0100, L500.4100, L503.6550 #### [facility] [address] [place], [address] Glucose [Mass/Vol] 123 mg/dL High 70-99 [facility] Comment on above: Performed By: #### L 500.4050, L503.6030, L501.9985, L506.1001, L506.0400, L503.0106, L501.9520, L100.0100, L500.4100, L503.6550 #### [facility] [address] [place], [place], [phone] Potassium [Moles/Vol] 4.1 mmol/L Normal 3.3-5.1 [facility] Comment on above: Performed By: #### L 500.4050, L503.6030, L501.9985, L506.1001, L506.0400, L503.0106, L501.9520, L100.0100, L500.4100, L503.6550 #### [facility] [address] [place], [place], [phone] Sodium [Moles/Vol] 137 mmol/L Normal 133-145 [facility] Comment on above: Result Comment: AMENDED REPORT 04/11/251028 NA previously reported as: 138 mmol/L Performed By: #### L 500.4050, L503.6030, L501.9985, L506.1001, L506.0400, L503.0106, L501.9520, L100.0100, L500.4100, L503.6550 #### [facility] [address] [place], [place], [id number] T PROT 6.9 g/dL Normal 5.9-8.4 [facility] Comment on above: Result Comment: AMENDED REPORT 04/11/251028 T PROT previously reported as: 7.1 g/dL Performed By: #### L 500.4050, L503.6030, L501.9985, L506.1001, L506.0400, L503.0106, L501.9520, L100.0100, L500.4100, L503.6550 #### [facility] [address] [place], [address] Urea nitrogen [Mass/Vol] 11 mg/dL Normal 4-19 [facility] Comment on above: Performed By: #### L 500.4050, L503.6030, L501.9985, L506.1001, L506.0400, L503.0106, L501.9520, L100.0100, L500.4100, L503.6550 #### [facility] [address] [place], [address] Ferritinon 04-11-2025 Ferritin [Mass/Vol] 32 ng/mL Normal 22-[address] [facility] Comment on above: Result Comment: AMENDED REPORT 04/11/25 1029 FERRITIN previously reported as: 35 ng/mL Performed By: #### L 500.4050, L503.6030, L501.9985, L506.1001, L506.0400, L503.0106, L501.9520, L100.0100, L500.4100, L503.6550 #### [facility] [address] [place], [address] Hemoglobin A1con 04-11-2025 HbA1c (Bld) [Mass fraction] 6.1 % High <=5.6 [facility] Comment on above: Result Comment: Norm al < 5.7 % Prediabetic 5.7 - 6.4 % Diabetic >or= 6.5 % Please note range changes. Performed By: #### L 500.4050, L503.6030, L501.9985, L506.1001, L506.0400, L503.0106, L501.9520, L100.0100, L500.4100, L503.6550 #### [facility] [address] [place], [address] Iron+Iron Binding Capacityon 04-11-2025 Iron [Mass/Vol] 75 ug/dL Normal 50-170 [facility] Comment on above: Performed By: #### L 500.4050, L503.6030, L501.9985, L506.1001, L506.0400, L503.0106, L501.9520, L100.0100, L500.4100, L503.6550 ####[facility] [address] [place], [place], [id number] IRON SATURATION 21.0 Normal 13-59 [facility] Comment on above: Performed By: #### L 500.4050, L503.6030, L501.9985, L506.1001, L506.0400, L503.0106, L501.9520, L100.0100, L500.4100, L503.6550 ####[facility] [address] [place], [place], [id number] TIBC 349 ug/dL Normal 250-450 [facility] Comment on above: Performed By: #### L 500.4050, L503.6030, L501.9985, L506.1001, L506.0400, L503.0106, L501.9520, L100.0100, L500.4100, L503.6550 ####[facility] [address] [place], [place], [id number] UIBC 274 ug/dL Normal 228-428 [facility] Comment on above: Performed By: #### L 500.4050, L503.6030, L501.9985, L506.1001, L506.0400, L503.0106, L501.9520, L100.0100, L500.4100, L503.6550 ####[facility] [address] [place], [place], [phone] Lipid Profileon 04-11-2025 CHOL:HDL 3.46 Normal [facility] Comment on above: Performed By: #### L 500.4050, L503.6030, L501.9985, L506.1001, L506.0400, L503.0106, L501.9520, L100.0100, L500.4100, L503.6550 #### [facility] [address] [place], [address] Cholesterol [Mass/Vol] 149 mg/dL Normal <=200 [facility] Comment on above: Result Comment: Chol esterol level, Desirable <200 mg/dL Borderline high cholesterol 200-239 mg/dL High cholesterol >=240 mg/dL Recommendations of the NCEP Adult Treatment Panel for the following risk-cutoff thresholds for the [place] population. Performed By: #### L 500.4050, L503.6030, L501.9985, L506.1001, L506.0400, L503.0106, L501.9520, L100.0100, L500.4100, L503.6550 #### [facility] [address] [place], [address] Cholesterol in HDL [Mass/Vol] 43 mg/dL Normal [facility] Comment on above: Result Comment: Maria Elena onal Cholesterol Education Program (NCEP) guidelines: <40 mg/dL: Low HDL-cholesterol (major risk factor for CHD) >= 60 mg/dL: High HDL-cholesterol (negative risk factor for CHD) HDL-cholesterol is affected by a number of factors, e.g. smoking, exercise, hormones, sex and age. Performed By: #### L 500.4050, L503.6030, L501.9985, L506.1001, L506.0400, L503.0106, L501.9520, L100.0100, L500.4100, L503.6550 #### [facility] [address] [place], [address] Cholesterol in LDL [Mass/Vol] 65 mg/dL Normal [facility] Comment on above: Result Comment: Bord afjmdb=165-778 mg/dL Higher Yhee=641 mg/dL or greater Friedwald Equation for LDL-C Performed By: #### L 500.4050, L503.6030, L501.9985, L506.1001, L506.0400, L503.0106, L501.9520, L100.0100, L500.4100, L503.6550 #### [facility] [address] [place], [place], [id number] Cholesterol in VLDL [Mass/Vol] 41 mg/dL High 5-40 [facility] Comment on above: Performed By: #### L 500.4050, L503.6030, L501.9985, L506.1001, L506.0400, L503.0106, L501.9520, L100.0100, L500.4100, L503.6550 #### [facility] [address] [place], [place], [phone] Triglyceride [Mass/Vol] 204 mg/dL High [facility] Comment on above: Result Comment: The drugs N-Acetylcysteine and Metamizole may falsely depress this assay. Normal range: <150 mg/dL Borderline High: 150-199 mg/dL High: 200-499 mg/dL Very High: >500 mg/dL Performed By: #### L 500.4050, L503.6030, L501.9985, L506.1001, L506.0400, L503.0106, L501.9520, L100.0100, L500.4100, L503.6550 #### [facility] [address] [place], [place], [id number] T4 Free Directon 04-11-2025 T4 FREE DIRECT 0.90 ng/dL Normal 0.76-1.46 [facility] Comment on above: Result Comment: AMENDED REPORT 04/11/25 1029 Free T4 previously reported as: 1.00 ng/dL Performed By: #### L 500.4050, L503.6030, L501.9985, L506.1001, L506.0400, L503.0106, L501.9520, L100.0100, L500.4100, L503.6550 ####[facility] [address] [place], [place], [address] Thyroid Stim Hormone (TSH)on 04-11-2025 TSH 1.170 uIU/mL Normal 0.300-4.200 [facility] Comment on above: Result Comment: AMENDED REPORT 04/11/251028 TSH previously reported as: 1.160 uIU/mL Performed By: #### L 500.4050, L503.6030, L501.9985, L506.1001, L506.0400, L503.0106, L501.9520, L100.0100, L500.4100, L503.6550 #### [facility] [address] [place], [place], [phone] Vitamin B12on 04-11-2025 Cobalamin (Vitamin B12) [Mass/Vol] 402 pg/mL Normal 180-914 [facility] Comment on above: Result Comment: AMENDED REPORT 04/11/251028 Vitamin B12 previously reported as: 415 pg/mL Performed By: #### L 500.4050, L503.6030, L501.9985, L506.1001, L506.0400, L503.0106, L501.9520, L100.0100, L500.4100, L503.6550 #### [facility] [address] [place], [place], [address] Vitamin D,25 Hydroxyon 04-11 Vitamin D 25-OH 22.0 ng/mL Low 30-100 [facility] Comment on above: Result Comment: Joanie min [...] L506.1001, L506.0400, L503.0106, L501.9520, L100.0100, L500.4100, L503.6550 ####[facility] [address] 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 exposed to multiple illnesses at work. [facility] Medical History Depression High cholesterol Vitamin [...] spouse current occupational status: employed current occupation: [employer] work Smoking Status: Never smoker Electronic Cigarette [...] ED soon (more content not included)... Normal [facility] Urgent Care Visit Reporton 1 10-09-2023 Urgent Care Visit Report [facility] [address], [address] [place] [address] OFFICE VISIT Date of Service: 08/08/24 MR#: [id number] Acct: [id number] Name: SOSA VALLEJO Rep #: [id number] : 1985 Provider: RUBINA Larose Age/Sex: 38/F Location: [facility] Status: Signed Intake Vital Signs 07/22/24 07:34 [...] has been going on for 1.5 weeks. [facility] Medical History Depression High cholesterol Vitamin [...] Patient adv (more content not included)... Normal [facility] CBC W/Diff, Automatedon 12-0 -2023 Absolute Lymph 2.40 X10 3/uL Normal 0.83-4.51 [facility] Comment on above: Performed By: #### L 500.4050, L500.4100, L100.0100 ####[facility] [facility] [address] [place], [place], [id number] Absolute Neut 6.4 X10 3/uL Normal 2.0-7.7 [facility] Comment on above: Performed By: #### L 500.4050, L500.4100, L100.0100 ####[facility] [address] [place], [address] Basophils/100 WBC (Bld) 0.5 % Normal 0-1 [facility] Comment on above: Performed By: #### L 500.4050, L500.4100, L100.0100 ####[facility] [address] [place], [address] Eosinophils/100 WBC (Bld) 2.2 % Normal 0-5 [facility] Comment on above: Performed By: #### L 500.4050, L500.4100, L100.0100 ####[facility] [address] [place], [address] Erythrocyte distribution width (RBC) [Ratio] 12.5 % Normal 11.6-14.6 [facility] Comment on above: Performed By: #### L 500.4050, L500.4100, L100.0100 ####[facility] [address] [place], [address] Hematocrit (Bld) [Volume fraction] 45.7 % Normal 37-47 [facility] Comment on above: Performed By: #### L 500.4050, L500.4100, L100.0100 ####[facility] [address] [place], [address] Hemoglobin (Bld) [Mass/Vol] 15.1 g/dL High 12.0-15.0 [facility] Comment on above: Performed By: #### L 500.4050, L500.4100, L100.0100 ####[facility] [address] [place], [address] IG% 0.400 Normal 0.0-0.9 [facility] Comment on above: Result Comment: IG% - Immature Granulocytes (promyelocytes, myelocytes and metamyelocytes) > 1% indicates that a LEFT SHIFT is Present. Performed By: #### L 500.4050, L500.4100, L100.0100 ####[facility] [address] [place], [address] Lymphocytes/100 WBC (Bld) 24.9 % Normal 19-41 [facility] Comment on above: Performed By: #### L 500.4050, L500.4100, L100.0100 ####[facility] [address] [place], [address] MCH (RBC) [Entitic mass] 28.0 pg Normal 27.0-32.0 [facility] Comment on above: Performed By: #### L 500.4050, L500.4100, L100.0100 ####[facility] [address] [place], [address] MCHC (RBC) [Mass/Vol] 33.0 g/dL Normal 32-36 [facility] Comment on above: Performed By: #### L 500.4050, L500.4100, L100.0100 ####[facility] [address] [place], [address] MCV (RBC) [Entitic vol] 84.6 fL Normal 81-99 [facility] Comment on above: Performed By: #### L 500.4050, L500.4100, L100.0100 ####[facility] [address] [place], [address] Monocytes/100 WBC (Bld) 5.0 % Normal 0-10 [facility] Comment on above: Performed By: #### L 500.4050, L500.4100, L100.0100 ####[facility] [address] [place], [address] Neutrophils/100 WBC (Bld) 67.0 % Normal 47-70 [facility] Comment on above: Performed By: #### L 500.4050, L500.4100, L100.0100 ####[facility] [address] [place], [address] Nucleated RBC (Bld) [#/Vol] 0 10*3/uL Normal 0-5 [facility] Comment on above: Performed By: #### L 500.4050, L500.4100, L100.0100 ####[facility] [address] [place], [address] Platelet mean volume (Bld) [Entitic vol] 10.2 fL Normal 6.2-12.0 [facility] Comment on above: Performed By: #### L 500.4050, L500.4100, L100.0100 ####[facility] [address] [place], [address] Platelets (Bld) [#/Vol] 299 10*3/uL Normal 150-450 [facility] Comment on above: Performed By: #### L 500.4050, L500.4100, L100.0100 ####[facility] [address] [place], [address] RBC (Bld) [#/Vol] 5.40 10*6/uL Normal 4.2-5.[address] [facility] Comment on above: Performed By: #### L 500.4050, L500.4100, L100.0100 ####[facility] [address] [place], [address] RDW SD 38.0 fl Normal 35.1-43.9 [facility] Comment on above: Performed By: #### L 500.4050, L500.4100, L100.0100 ####[facility] [address] [place], [address] WBC (Bld) [#/Vol] 9.6 10*3/uL Normal 4.4-11.0 [facility] Comment on above: Performed By: #### L 500.4050, L500.4100, L100.0100 ####[facility] [address] [place], [address] Comprehensive Metabolic Prof ilon 07-22-2024 Albumin [Mass/Vol] 4.2 g/dL Normal 3.2-5.0 [facility] Comment on above: Performed By: #### L 500.4050, L500.4100, L100.0100 ####[facility] [address] [place], [address] Albumin/Globulin [Mass ratio] 1.2 {ratio} Normal 0.9-2.4 [facility] Comment on above: Performed By: #### L 500.4050, L500.4100, L100.0100 ####[facility] [address] [place], [address] ALK P 67 U/L Normal 45-117 [facility] Comment on above: Performed By: #### L 500.4050, L500.4100, L100.0100 ####[facility] [address] [place], [address] ALT [Catalytic activity/Vol] 63 U/L High 13-56 [facility] Comment on above: Performed By: #### L 500.4050, L500.4100, L100.0100 ####[facility] [address] [place], [address] AST [Catalytic activity/Vol] 25 U/L Normal 15-37 [facility] Comment on above: Performed By: #### L 500.4050, L500.4100, L100.0100 ####[facility] [address] [place], [address] Bilirubin [Mass/Vol] 0.70 mg/dL Normal 0.20-1.00 [facility] Comment on above: Result Comment: For patients on eltrombopag therapy, use of Dimension [place] TBIL is not recommended. Performed By: #### L 500.4050, L500.4100, L100.0100 ####[facility] [address] [place], [address] BUN/CRE 20.6 RATIO High 10-20 [facility] Comment on above: Performed By: #### L 500.4050, L500.4100, L100.0100 ####[facility] [address] [place], [address] CA,Total 9.3 mg/dL Normal 8.5-10.1 [facility] Comment on above: Performed By: #### L 500.4050, L500.4100, L100.0100 ####[facility] [address] [place], [address] Chloride [Moles/Vol] 103 mmol/L Normal 98-107 [facility] Comment on above: Performed By: #### L 500.4050, L500.4100, L100.0100 ####[facility] [address] [place], [address] CO2 [Moles/Vol] 28.0 mmol/L Normal 21.0-32.0 [facility] Comment on above: Performed By: #### L 500.4050, L500.4100, L100.0100 ####[facility] [address] [place], [address] Creatinine [Mass/Vol] 0.73 mg/dL Normal 0.55-1.02 [facility] Comment on above: Result Comment: The validity of the calculated GFR GFRAA in patients over 70 years has not been determined. Clinical correlation is essential. Performed By: #### L 500.4050, L500.4100, L100.0100 ####[facility] [address] [place], [address] EST GFR - AA 114 mL/min Normal >60 [facility] Comment on above: Result Comment: Afri can [place] GFR Calc Performed By: #### L 500.4050, L500.4100, L100.0100 ####[facility] [address] [place], [address] GAP 6 Normal 5-15 [facility] Comment on above: Performed By: #### L 500.4050, L500.4100, L100.0100 ####[facility] [address] [place], [address] GFR/1.73 sq M.predicted among non-blacks MDRD (S/P/Bld) [Vol rate/Area] 94 mL/min/{1.73_m2} Normal >60 [facility] Comment on above: Result Comment: Non- GFR Calc Performed By: #### L 500.4050, L500.4100, L100.0100 ####[facility] [address] [place], [address] Globulin (S) [Mass/Vol] 3.5 g/dL Normal 2.2-4.2 [facility] Comment on above: Performed By: #### L 500.4050, L500.4100, L100.0100 ####[facility] [address] [place], [address] Glucose [Mass/Vol] 131 mg/dL High 74-106 [facility] Comment on above: Result Comment: Fast ing Glucose result greater than or equal to 126 mg/dL suggests DIABETES MELLITUS per A.D.A. criteria. Performed By: #### L 500.4050, L500.4100, L100.0100 ####[facility] [address] [place], [address] Potassium [Moles/Vol] 4.0 mmol/L Normal 3.5-5.1 [facility] Comment on above: Performed By: #### L 500.4050, L500.4100, L100.0100 ####[facility] [address] [place], [address] Sodium [Moles/Vol] 137 mmol/L Normal 136-145 [facility] Comment on above: Performed By: #### L 500.4050, L500.4100, L100.0100 ####[facility] [address] [place], [address] T PROT 7.7 g/dL Normal 6.4-8.2 [facility] Comment on above: Performed By: #### L 500.4050, L500.4100, L100.0100 ####[facility] [address] [place], [address] Urea nitrogen [Mass/Vol] 15 mg/dL Normal 7-18 [facility] Comment on above: Performed By: #### L 500.4050, L500.4100, L100.0100 ####[facility] [address] [place], [address] Lipid Profileon 07-22-2024 Cholesterol [Mass/Vol] 157 mg/dL Normal 200 [facility] Comment on above: Result Comment: <200 mg/dL Desirable 200-240 mg/dL Borderline >240 mg/dL High Risk Performed By: #### L 500.4050, L500.4100, L100.0100 ####[facility] [address] [place], [address] Cholesterol in HDL [Mass/Vol] 35 mg/dL Low [facility] Comment on above: Result Comment: The drugs N-Acetylcysteine and Metamizole may falsely depress this assay. Reference Range HDL <40 mg/dL Low HDL Cholesterol HDL >or= 60 mg/dL High HDL Cholesterol Performed By: #### L 500.4050, L500.4100, L100.0100 ####[facility] [address] [place], [address] Cholesterol in LDL [Mass/Vol] 53 mg/dL Normal 0-130 [facility] Comment on above: Performed By: #### L 500.4050, L500.4100, L100.0100 ####[facility] [address] [place], [address] Cholesterol in VLDL [Mass/Vol] 69 mg/dL High 5-40 [facility] Comment on above: Performed By: #### L 500.4050, L500.4100, L100.0100 ####[facility] [address] [place], [address] Triglyceride [Mass/Vol] 347 mg/dL High [facility] Comment on above: Result Comment: The drugs N-Acetylcysteine and Metamizole may falsely depress this assay. Serum Triglycerides Reference Interval Normal <150 mg/dL Borderline high 150 - 199 mg/dL High 200 - 499 mg/dL Very High > or = 500 mg/dL Performed By: #### L 500.4050, L500.4100, L100.0100 ####[facility] [address] [place], [address] Internal Medicine Office Vis shane 07-21-2024 Internal Medicine Office Visit [facility] [address] [place] [address] [place] [address] OFFICE VISIT Date of Service: 07/22/24 MR#: [id number] Acct: [id number] Name: SOSA VALLEJO Rep #: [id number] : 1985 Provider: Dr. 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 Normal [facility] Basophil percentageOrdered B y: Vianca Escobarniki on 12-20-2023 Bilirubin [Mass/Vol] 0.50 mg/dL 0.20-1.00 [facility] Comment on above: For patients on eltr ombopag therapy, use of Dimension [place] TBIL is not recommended. Chloride [Moles/Vol] 104 mmol/L 98-107 [facility] Glucose [Mass/Vol] 119 mg/dL 74-106 [facility] Comment on above: Fasting Glucose resu lt from 100 to 125 mg/dL suggests IMPAIRED HOMEOSTASIS per A.D.A. criteria. Potassium [Moles/Vol] 3.6 mmol/L 3.5-5.1 [facility] Protein [Mass/Vol] 7.2 g/dL 6.4-8.2 [facility] Sodium [Moles/Vol] 138 mmol/L 136-145 [facility] Laboratory - Chemistry and C hemistry - challengeOrdered By: Vianca Figueroa on 12-20-2023 Albumin/Globulin [Mass ratio] 1.2 {ratio} 0.9-2.4 [facility] ALP [Catalytic activity/Vol] 50 U/L 45-117 [facility] ALT [Catalytic activity/Vol] 38 U/L 13-56 [facility] CO2 [Moles/Vol] 29.0 mmol/L 21.0-32.0 [facility] Globulin (S) [Mass/Vol] 3.2 g/dL 2.2-4.2 [facility] Natriuretic peptide B (Bld) [Mass/Vol] 19.2 pg/mL 0-100 [facility] Urea nitrogen/Creatinine [Mass ratio] 12.6 mg/mg 10-20 [facility] No Panel InformationOrdered By: Vianca Figueroa on 12-20-2023 D-Dimer Quantitative (PE/DVT) < 0.27 FEU/ug/m 0.27-0.49 [facility] Comment on above: NORMAL D-Dimer level (<0.50) indicates no DVT or PE. Estimated GFR (MDRD) Amer 117 mL/min >60 [facility] Comment on above: GFR Calc Estimated GFR (MDRD) Non-Af Amer 96 mL/min >60 [facility] Comment on above: Non- GFR Calc Serum or plasma calcium roselia urement (mass/volume)Ordered By: Vianca Figueroa on 12-20-2023 Calcium [Mass/Vol] 8.9 mg/dL 8.5-10.1 [facility] Serum or plasma creatinine m easurement (mass/volume)Ordered By: Vianca Figueroa on 12-20-2023 Creatinine [Mass/Vol] 0.72 mg/dL 0.55-1.02 [facility] Comment on above: The validity of the calculated GFR & GFRAA in patients over 70 years has not been determined. Clinical correlation is essential. Serum or plasma thyroid stim ulating hormone (TSH) measurement (units/volume)Ordered By: Vianca Figueroa on 12-20-2023 TSH Qn 1.35 uIU/mL 0.358-3.74 [facility] Serum or plasma urea nitroge n measurement (mass/volume)Ordered By: Vianca Figueroa on 12-20-2023 Urea nitrogen [Mass/Vol] 9 mg/dL 7-18 [facility] Thin prep Papanicolaou smear with manual screeningOrdered By: Vianca Figueroa on 12-20-2023 Protein (U) [Mass/Vol] 9.9 mg/dL 0.0-11.8 [facility] Thin prep Papanicolaou smear with manual screening 4.0 g/dL 3.2-5.0 [facility] Thin prep Papanicolaou smear with manual screening 22 U/L 15-37 [facility] Thin prep Papanicolaou smear with manual screening 5 5-15 [facility] Urine creatinine measurement (mass/volume)Ordered By: Vianca Figueroa on 12-20-2023 Creatinine (U) [Mass/Vol] 111.00 mg/dL NO RANGE EST. [facility] Urine protein/creatinine mas s ratioOrdered By: Vianca Figueroa on 12-20-2023 Protein/Creatinine (U) [Mass ratio] 89 mg/g CRE 0-200 [facility] Laboratory - Hematology and Cell countson 11-19-2023 HbA1c (Bld) [Mass fraction] 5.7 % 4.2-6.3 [facility] Laboratory - Microbiology an d Antimicrobial susceptibilityOrdered By: Ashleigh Rodriguez on 11-19-2023 SARS-CoV-2 (COVID-19) RNA TWIN+probe Ql (Unsp spec) [facility] Cervical or vaginal specimen microscopic examination by liquid based cytology (reportOrdered By: Ashley Robertson on 10-12-2023 Cytology report Cyto stain.thin prep Doc (Cvx/Vag) Comment . [facility] Comment on above: Criteria not met, HP V Genotype not performed.Performed at: [facility] [address] [id number] Director: Jesús Gil MD, Phone: [phone] at: [address] [id number] Director: Lizzeth Hernández MD, Phone: [phone] at: [address] [id number] Director: Lizzeth Hernández MD, Phone: [phone] Cervical or vagninal specime n microscopic examination by cytology stain (reported asOrdered By: [place] on 10-12-2023 Cytology report Cyto stain Doc (Cvx/Vag) Comment . [facility] Comment on above: The Pap smear is [...] DNA Probe+sig amp Ql (Cvx) Negative Negative [facility] Comment on above: This nucleic acid am plification test detects fourteen high-risk HPV types (16,18,31,33,35,39,45,51,52,56,58,59,66,68)without differentiation. Laboratory - CytologyOrdered By: [place] on 10-12-2023 Advertising Dispatch Clerk Cyto stain Nom (Cvx/Vag) [ID] Comment . [facility] Comment on above: Sofiya Steele Cytote chnologist (ASCP) Laboratory - Miscellaneous t estsOrdered By: [place] on 10-12-2023 Service comment (Unsp spec) [Interp] . . [facility] Thin prep Papanicolaou smear with manual screeningOrdered By: Ashley Robertson on 10-12-2023 Thin prep Papanicolaou smear with manual screening Comment . [facility] Comment on above: NEGATIVE FOR INTRAEP ITHELIAL LESION OR MALIGNANCY. This liquid based Th inPrep(R) pap test was screened withthe use of an image guided system. Laboratory - Hematology and Cell countson 08-28-2023 HbA1c (Bld) [Mass fraction] 5.6 % 4.2-6.3 [facility] Basophil percentageon 2021 Bilirubin [Mass/Vol] 1.10 mg/dL 0.20-1.00 [facility] Work Phone: Comment on above: For patients on eltr ombopag therapy, use of Dimension [place] TBIL is not recommended. Chloride [Moles/Vol] 107 mmol/L 98-107 [facility] Work Phone: Cholesterol [Mass/Vol] 171 mg/dL <200 [facility] Work Phone: Comment on above: <200 mg/dL Desirable 200-240 mg/dL Borderline >240 mg/dL High Risk Glucose [Mass/Vol] 102 mg/dL 74-106 [facility] Work Phone: Comment on above: Fasting Glucose resu lt from 100 to 125 mg/dL suggests IMPAIRED HOMEOSTASIS per A.D.A. criteria. Potassium [Moles/Vol] 3.4 mmol/L 3.5-5.1 [facility] Work Phone: Protein [Mass/Vol] 7.6 g/dL 6.4-8.2 [facility] Work Phone: Sodium [Moles/Vol] 139 mmol/L 136-145 [facility] Work Phone: Triglyceride [Mass/Vol] 163 mg/dL <199 [facility] Work Phone: Comment on above: The drugs N-Acetylcy steine and Metamizole may falsely depress this assay.Serum Triglycerides Reference Interval Normal <150 mg/dL Borderline high 150 - 199 mg/dL High 200 - 499 mg/dL Very High > or = 500 mg/dL Laboratory - Chemistry and C hemistry - challengeon 07-21-2022 ALP [Catalytic activity/Vol] 41 U/L 45-117 [facility] Work Phone: [phone] ALT [Catalytic activity/Vol] 26 U/L 13-56 [facility] Work Phone: [phone] CO2 [Moles/Vol] 27.0 mmol/L 21.0-32.0 [facility] Work Phone: [phone] Globulin (S) [Mass/Vol] 3.4 g/dL 2.2-4.2 [facility] Work Phone: [phone] Urea nitrogen/Creatinine [Mass ratio] 14.5 mg/mg 10-20 [facility] Work Phone: No Panel Informationon 07-21 Estimated GFR (MDRD) Amer 110 mL/min >60 [facility] Work Phone: Comment on above: GFR Calc Estimated GFR (MDRD) Non-Af Amer 91 mL/min >60 [facility] Work Phone: Comment on above: Non- GFR Calc Serum or plasma albumin roselia urement (mass/volume)on 07-21-2022 Albumin [Mass/Vol] 4.2 g/dL 3.2-5.0 [facility] Work Phone: [phone] Serum or plasma albumin/glob ulin mass ratioon 07-21-2022 Albumin/Globulin [Mass ratio] 1.2 {ratio} 0.9-2.4 [facility] Work Phone: [phone] Serum or plasma calcium roselia urement (mass/volume)on 07-21-2022 Calcium [Mass/Vol] 9.0 mg/dL 8.5-10.1 [facility] Work Phone: Serum or plasma cholesterol in HDL measurement (mass/volume)on 07-21-2022 Cholesterol in HDL [Mass/Vol] 51 mg/dL >40 [facility] Work Phone: Comment on above: The drugs N-Acetylcy steine and Metamizole may falsely depress this assay. Reference Range HDL <40 mg/dL Low HDL Cholesterol HDL >or= 60 mg/dL High HDL Cholesterol Serum or plasma cholesterol in VLDL measurement (mass/volume)on 07-21-2022 Cholesterol in VLDL [Mass/Vol] 33 mg/dL 5-40 [facility] Work Phone: Serum or plasma creatinine m easurement (mass/volume)on 07-21-2022 Creatinine [Mass/Vol] 0.76 mg/dL 0.55-1.02 [facility] Work Phone: Comment on above: The validity of the calculated GFR & GFRAA in patients over 70 years has not been determined. Clinical correlation is essential. Serum or plasma low density lipoprotein (LDL) cholesterol measurement (mass/volume)on 07-21-2022 Cholesterol in LDL [Mass/Vol] 87 mg/dL 0-130 [facility] Work Phone: Serum or plasma urea nitroge n measurement (mass/volume)on 07-21-2022 Urea nitrogen [Mass/Vol] 11 mg/dL 7-18 [facility] Work Phone: Thin prep Papanicolaou smear with manual screeningon 07-21-2022 Thin prep Papanicolaou smear with manual screening 11 U/L 15-37 [facility] Work Phone: Thin prep Papanicolaou smear with manual screening 5 5-15 [facility] Work Phone: Whole blood hemoglobin A1c/t otal hemoglobin ratio (mass fraction)on 07-21-2022 HbA1c (Bld) [Mass fraction] 5.5 % 3.8-5.6 [facility] Work Phone: Comment on above: Normal < 5.7 % Predi abetic 5.7 - 6.4 % Diabetic >or= 6.5 % Please note range changes. Laboratory - Chemistry and C hemistry - challengeon 04-21-2022 Free T4 [Mass/Vol] 1.02 ng/dL 0.76-1.46 [facility] Work Phone: No Panel Informationon 04-21 Thyroid Stimulating Hormone (TSH) 1.05 uIU/mL 0.358-3.74 [facility] Work Phone: Vital Signs Date Time Vital Sign Value Performing Clinician Faci lity 12-20-2023 15:28-0400 Body height 167.[address] Christine Christopher Work Phone: [facility] 12-20-2023 15:28-0400 Body mass index (BMI) [Ratio] 28.8 kg/m2 Dr. Christine Christopher Work Phone: [facility] 12-20-2023 15:28-0400 Body temperature 98.5 [degF] Dr. Christine Christopher Work Phone: [facility] 12-20-2023 15:28-0400 Body weight 80.[address] Christine Christopher Work Phone: [facility] 12-20-2023 15:28-0400 Diastolic blood pressure 70 mm[Hg] Dr. Christine Christopher Work Phone: [facility] 12-20-2023 15:28-0400 Heart rate 103 /min Dr. Christine Christopher Work Phone: [facility] 12-20-2023 15:28-0400 Respiratory rate 16 /min Dr. Christine Christopher Work Phone: [facility] 12-20-2023 15:28-0400 SaO2% (BldA) [Mass fraction] 98 % Dr. Christine Christopher Work Phone: [facility] 12-20-2023 15:28-0400 Systolic blood pressure 120 mm[Hg] Dr. Christine Christopher Work Phone: [facility] 11-30-2023 11:39-0400 Body temperature 98.2 [degF] Dr. Christine Christopher Work Phone: [facility] 11-30-2023 11:39-0400 Diastolic blood pressure 84 mm[Hg] Dr. Christine Christopher Work Phone: [facility] 11-30-2023 11:39-0400 Heart rate 94 /min Dr. Christine Christopher Work Phone: [facility] 11-30-2023 11:39-0400 SaO2% (BldA) [Mass fraction] 99 % Dr. Christine Christopher Work Phone: [facility] 11-30-2023 11:39-0400 Systolic blood pressure 132 mm[Hg] Dr. Christine Christopher Work Phone: [facility] 11-19-2023 09:37-0400 Body mass index (BMI) [Ratio] 27.9 kg/m2 Dr. Christine Christopher Work Phone: [facility] 11-19-2023 09:37-0400 Body temperature 99 [degF] Dr. Christine Christopher Work Phone: [facility] 11-19-2023 09:37-0400 Body weight 78.[address] Christine Christopher Work Phone: [facility] 11-19-2023 09:37-0400 Diastolic blood pressure 94 mm[Hg] Dr. Christine Christopher Work Phone: [facility] 11-19-2023 09:37-0400 Heart rate 91 /min Dr. Christine Christopher Work Phone: [facility] 11-19-2023 09:37-0400 Respiratory rate 18 /min Dr. Christine Christopher Work Phone: [facility] 11-19-2023 09:37-0400 SaO2% (BldA) [Mass fraction] 98 % Dr. Christine Christopher Work Phone: [facility] 11-19-2023 09:37-0400 Systolic blood pressure 140 mm[Hg] Dr. Christine Christopher Work Phone: [facility] 11-19-2023 09:03-0400 Body temperature 97.8 [degF] Dr. Christine Christopher Work Phone: [facility] 11-19-2023 09:03-0400 Diastolic blood pressure 91 mm[Hg] Dr. Christine Christopher Work Phone: [facility] 11-19-2023 09:03-0400 Heart rate 89 /min Dr. Christine Christopher Work Phone: [facility] 11-19-2023 09:03-0400 Respiratory rate 18 /min Dr. Christine Christopher Work Phone: [facility] 11-19-2023 09:03-0400 SaO2% (BldA) [Mass fraction] 99 % Dr. Christine Christopher Work Phone: [facility] 11-19-2023 09:03-0400 Systolic blood pressure 154 mm[Hg] Dr. Christine Christopher Work Phone: [facility] 11-19-2023 06:51-0400 Body height 167.[address] Christine Christopher Work Phone: [facility] 11-19-2023 06:51-0400 Body mass index (BMI) [Ratio] 27.2 kg/m2 Dr. Christine Christopher Work Phone: [facility] 11-19-2023 06:51-0400 Body weight 76.[address] Christine Christopher Work Phone: [facility] 10-12-2023 16:00-0500 Body height 167.[address] Christine Christopher Work Phone: [facility] 10-12-2023 16:00-0500 Body mass index (BMI) [Ratio] 27.6 kg/m2 Dr. Christine Christopher Work Phone: [facility] 10-12-2023 16:00-0500 Body weight 77.[address] Christine Christopher Work Phone: [facility] 10-12-2023 16:00-0500 Diastolic blood pressure 82 mm[Hg] Dr. Christine Christopher Work Phone: [facility] 10-12-2023 16:00-0500 Systolic blood pressure 126 mm[Hg] Dr. Christine Christopher Work Phone: [facility] 08-28-2023 15:18-0500 Body mass index (BMI) [Ratio] 26.6 kg/m2 Dr. Christine Christopher Work Phone: [facility] 08-28-2023 15:18-0500 Body temperature 98.3 [degF] Dr. Christine Christopher Work Phone: [facility] 08-28-2023 15:18-0500 Body weight 75.[address] Christine Christopher Work Phone: [facility] 08-28-2023 15:18-0500 Diastolic blood pressure 82 mm[Hg] Dr. Christine Christopher Work Phone: [facility] 08-28-2023 15:18-0500 Heart rate 90 /min Dr. Christine Christopher Work Phone: [facility] 08-28-2023 15:18-0500 Respiratory rate 16 /min Dr. Christine Christopher Work Phone: [facility] 08-28-2023 15:18-0500 SaO2% (BldA) [Mass fraction] 98 % Dr. Christine Christopher Work Phone: [facility] 08-28-2023 15:18-0500 Systolic blood pressure 118 mm[Hg] Dr. Christine Christopher Work Phone: [facility] 03-17-2022 08:29-0400 Body height 167.64 cm [facility] Fide Lyons Work Phone: [facility] Work Phone: 03-17-2022 08:29-0400 Body mass index (BMI) [Ratio] 26.6 kg/m2 [facility] Fide Lyons Work Phone: [facility] Work Phone: 03-17-2022 08:29-0400 Body weight 74.84 kg [facility] Fide Lyons Work Phone: [facility] Work Phone: 09-14-2021 06:51-0500 Body height 167.64 cm [facility] Fide Lyons Work Phone: [facility] Work Phone: 09-14-2021 06:51-0500 Body mass index (BMI) [Ratio] 26.6 kg/m2 [facility] Fide Lyons Work Phone: [facility] Work Phone: 09-14-2021 06:51-0500 Body temperature 98.6 [degF] [facility] Fide Lyons Work Phone: [facility] Work Phone: 09-14-2021 06:51-0500 Body weight 74.84 kg [facility] Fide Lyons Work Phone: [facility] Work Phone: 09-14-2021 06:51-0500 Diastolic blood pressure 82 mm[Hg] [facility] Fide Lyons Work Phone: [facility] Work Phone: 09-14-2021 06:51-0500 Heart rate 113 /min [facility] Fide Lyons Work Phone: [facility] Work Phone: 09-14-2021 06:51-0500 Respiratory rate 16 /min [facility] Fide Apodacas Work Phone: [facility] Work Phone: 09-14-2021 06:51-0500 SaO2% (BldA) [Mass fraction] 99 % [facility] Fide Saco Work Phone: [facility] Work Phone: 09-14-2021 06:51-0500 Systolic blood pressure 126 mm[Hg] [facility] Work Phone: [facility] Work Phone: Encounters Encounter Date Encounter Type Care Provider Facility Start: 04-11-2025 ambulatory [facility] Facility :[facility] Start: 04-06-2025 ambulatory [facility] Facility :[facility] Start: 09-17-2024 End: 09-17-2024 ambulatory Tre CESPEDES Facility:[facility] Start: 08-08-2024 End: 08-08-2024 ambulatory Don CESPEDES Facility:[facility] Start: 07-22-2024 End: 07-22-2024 ambulatory Christine Christopher Facility:[facility] Start: 07-22-2024 End: 07-22-2024 ambulatory Christine Christopher Facility:[facility] Start: 12-20-2023 End: 12-20-[address] Christine Christopher Work Phone: [facility] Work Phone: Start: 12-20-2023 End: 12-20-[address] Christine Christopher Work Phone: [facility] Work Phone: Start: 11-30-2023 End: 11-30-[address] Christine Christopher Work Phone: [facility] Work Phone: Start: 11-19-2023 End: 11-19-[address] Christine Christopher Work Phone: [facility] Work Phone: Start: 11-19-2023 End: 11-19-2023 [facility] Start: 10-12-2023 End: 10-12-[address] Christine Christopher Work Phone: [facility] Work Phone: Start: 10-12-2023 End: 10-12-[address] [facility] Work [facility]: Start: 10-12-2023 End: 10-12-[address] Christine Christopher Work Phone: [facility] Work Phone: Start: 08-28-2023 End: 08-28-[address] Christine Christopher Work Phone: [facility] Work Phone: Start: 07-21-2022 End: 07-21-2022 ambulatory [facility] Work Phone: Start: 07-21-2022 End: 07-21-2022 [facility] Start: 04-21-2022 End: 04-21-2022 ambulatory [facility] Fide Lyons Work Phone: [facility] Work Phone: Start: 04-21-2022 End: 04-21-2022 Patient encounter procedure [facility] Fide Lyons Work Phone: [facility]-Laboratory, [employer] account consultant Off Start: 03-17-2022 End: 03-17-2022 Patient encounter procedure [facility] Fide Paulinolins Work Phone: [facility] Start: 11-23-2021 Non-patient / Non-visit [facility] Michelle Lyons Work Phone: [facility] Start: 11-22-2021 End: 11-22-2021 Patient encounter procedure [facility] Fide Paulinolins Work Phone: [facility]-Pulmonary Services/Neurology Start: 11-10-2021 End: 11-10-2021 Patient encounter procedure [facility] Fide Paulinolins Work Phone: [facility]-Radiology, [facility] Start: 09-14-2021 End: 09-14-2021 Patient encounter procedure [facility] Fide Paulinolins Work Phone: [facility] Procedures Date Procedure Procedure Detail Performing Clinician Start: 11-19-2023 SARS-CoV-2, Influenz a & RSV (PCR) Dr. Christine Christopher Work Phone: Start: 03-17-2022 Plain x-ray of pelvi s and lower extremity [facility] Fide Paulinolins Work Phone: Start: 11-10-2021 Plain chest X-ray [facility] Fide Paulinolins Work Phone: Plan of Treatment Date Care Activity Detail Author Start: 11-19-2023 [facility] Start: 10-12-2023 Liquid based cervica l cytology screening [facility] Path report.final Dx Spec [facility] Patient Education ED Sinusitis (Antibiotic Treatment) [facility] Work Phone: Patient referral [facility] Work Phone: [facility] Payers Date Payer Category Payer Self-pay 2024 Private Health Insurance [id number] Self-pay SELF PAY INSURANCE [id number] Unknown [id number] Unknown [facility] [id number] Unknown [id number] Unknown [id number] Unknown [id number] Unknown [id number] Unknown [id number] Unknown [id number] Social History Date Type Detail Facility Start: 11-29-2020 End: 11-30-2023 Tobacco smoking status NHIS Unknown if ever smoked [facility] Start: 1985 Sex Assigned At Female [facility] Mental Status Date Assessment Result Facility 11-19-2023 Cognitive function Level Of Cons ciousness Awake;Alert;Appropriate;Follow s Commands [facility] Work Phone: Clinical Note 10-12-2023 Note Date & Type Note Facility 10-12-2023 Note [facility] Pap Smear Specimen Adequacy October 12, 2023 5:48pm Comment . Satisfactory for evaluation. Endocervical and/or squamous metaplasticcells (endocervical component) are present. Comment on above: Satisfactory for tayler luation. Endocervical and/or squamous metaplasticcells (endocervical component) are present. Clinical Note 10-12-2023 Note Date & Type Note Facility 10-12-2023 Note [facility] Pap Smear Specimen Adequacy October 12, 2023 5:48pm Comment . Satisfactory for evaluation. Endocervical and/or squamous metaplasticcells (endocervical component) are present. Comment on above: Satisfactory for tayler luation. Endocervical and/or squamous metaplasticcells (endocervical component) are present. Evaluation note Note Date & Type Note Facility Evaluation note Diagnosis Onset Date Acute frontal sinusitis, unspecified acute [facility] Work Phone: Evaluation note Note Date & Type Note Facility Evaluation note Diagnosis Onset Date Bone island of right femur n oneactive Piriformis syndrome of right side noneactive Greater trochanteric bursitis of right hip noneactive Pain of right sacroiliac joint noneactive [facility] Work Phone: Evaluation note Note Date & Type Note Facility Evaluation note No assessment information availa ble [facility] Work Phone: Evaluation note Note Date & Type Note Facility Evaluation note Diagnosis Onset Date Essential hypertension acute Type 2 diabetes mellitus acu te Depression with anxiety none active Chronic right hip pain nonea ctive Epigastric pain noneactive Encounter for routine gyneco logical examination noneactive [facility] Work Phone: Evaluation note Note Date & [...] both lower legs acute Weight gain acute [facility] Work Phone: Chief Complaint and Reason for [...] sacroiliac joint Chief Complaint FOLLOW UP Annual (GENERAL CLAIMS AGENT) Reason for Visit Essential hypertensi on Type 2 diabetes mellitus Depression with anxiety Chronic right hip pain Epigastric pain Encounter for routine gynecological examination Chief Complaint FOLLOW UP Annual (GENERAL CLAIMS AGENT) headache Reason for Visit Essential hypertensi on Type 2 diabetes mellitus Depression with anxiety Chronic right hip pain Epigastric pain Encounter for routine gynecological examination Chief Complaint FOLLOW UP Annual (GENERAL CLAIMS AGENT) headache follow up SINUS PRESSURE, EAR PRESSURE [...] No August 24 9 11:09am Power of Pharmacy Sales Assistant No August 24 019 11:09am Advance Directive Response Recorded Date/ Time Living Will No March 13, 2022 11:59am Power of Pharmacy Sales Assistant No March 13 2 11:59am Advance Directive Response Recorded Date/ Time Living Will No March 13, 2022 10:59am Power of Pharmacy Sales Assistant No March 13 2 10:59am Advance Directive Response Recorded Date/ Time Living Will No November 19, 2023 6:56am Power of Pharmacy Sales Assistant No November 18 4 6:56am Family History [...] Dr. Christine Christopher MD Primary Care Provider, [facility] Provider Active Ashley Robertson CNM Attending Provider Active Team Status: Inactive Member Role Status Dates Dr. Crhistine Christopher MD Primary Care Pro vider, Attending [...] section and content) DATE CREATED AUTHOR 04/13/[address] [facility] FOR RECORDS PERTAINING TO PATIENTS WHO [...] BE BASED ON THE PRIMARY CLINICAL RECORDS. [employer] provides no warranty or guarantee of the accuracy or completeness of information in this document.
== END | disposition home or self-care (01) ==
LOC: LAB 04-14 07:34
PROVIDERS: PCP Internal Medicine; Referring Provider Nurse Practitioner Family; Visit Provider Nurse Practitioner Family
DX: E11.9 Type 2 diabetes mellitus without complications (principal); E78.2 Mixed hyperlipidemia; E55.9 Vitamin D deficiency, unspecified; R53.83 Other fatigue
CPT/HCPCS: 36415; 80053; 80061; 82306; 82607; 82728; 83036; 83540; 83550; 84439; 84443; 85025